=== PATIENT | female | born 1995 | race Caucasian/White ===

== ENCOUNTER 2023-10-06 20:07 | Outpatient (CLI) | payer OTHER, SELFPAY ==
[2023-10-06] VITALS (24 sets, daily range): BP systolic 122–134; BP diastolic 86–95; PULSE 92–120; O2SAT 97–100; BMI 35.6
[2023-10-06 20:47] LABS: Basophils Percent Auto 0.2 % (0.2-1.2); Eosinophils Absolute Auto 0.1 K/mm3 (0-0.3); Eosinophils Percent Auto 0.9 % (0-4.4); Hematocrit 35.1 % (37.0-47.0); Hemoglobin 11.9 g/dL (12.0-15.0); Immature Granulocyte Absolute 0.15 K/mm3 (0.00-0.031); Immature Granulocyte Percent A 1.3 % (0-0.5); Lymphocytes Absolute Auto 2.23 K/mm3 (0.9-3.2); Lymphocytes Percent Auto 19.4 % (18.3-44.2); Mean Corpuscular HGB Conc 33.9 g/dl (32-36); Mean Corpuscular Hemoglobin 27.7 pg (26-34); Mean Corpuscular Volume 81.8 fl (80-100); Mean Platelet Volume 12.9 fl (7.4-10.4); Monocytes Percent Auto 8.9 % (2.6-8.5); Neutrophils Percent Auto 69.3 % (45.5-73.1); Platelet Count Result 171 k/mm3 (150-375); Red Blood Count 4.29 M/mm3 (4.2-5.4); Red Cell Distribution Width 13.8 % (11.5-14.5); White Blood Count 11.5 K/mm3 (4.5-10.0)
[2023-10-06 20:56] LABS: Creatinine Urine 31.5 mg/dL; Total Protein Urine Random 13 mg/dL; Ur Ttl Prot Creatinine Ratio 0.41 mg/mg (0-0.20)
[2023-10-06 20:57] LABS: Alanine Aminotransferase 19 U/L (6-35); Albumin Level 3.3 g/dL (3.5-5.1); Alkaline Phosphatase 213 U/L (38-126); Anion Gap 7 mmol/L (4-12); Aspartate Amino Transferase 24 U/L (14-36); Bilirubin,Total 0.4 mg/dL (0.2-1.3); Blood Urea Nitrogen 5 mg/dL (7-17); Calcium 8.5 mg/dL (8.4-10.2); Carbon Dioxide 20 mmol/L (22-30); Chloride 107 mmol/L (98-107); Estimated CRCL calculation 120 ml/min; Estimated Glomerular Filt Rate > 60; Glucose 109 mg/dL (65-110); Potassium 3.8 mmol/L (3.4-5.0); Sodium 134 mmol/L (137-145); Uric Acid 4.3 mg/dL (2.5-7.5)
[2023-10-06 21:02] LABS: Bacteria Urine None Seen /hpf; Non Pathogenic Casts 0-2; RBC Urine 0-2 /hpf (0-2); Squamous Epithelial Cell Urine None Seen /hpf (Few); WBC Urine 0-5 /hpf (0-3)
[2023-10-06 21:12] LABS: Appearance Urine Clear (Clear); Bilirubin Urine Negative (Negative); Blood Urine Negative (Negative); Color Urine Yellow (Yellow); Glucose Urine UA Trace mg/dL (Negative); Ketones Urine Negative (Negative); Leukocyte Esterase Ur Trace LEU/UL (Negative); Nitrate Urine Negative (Negative); Protein Urine Negative (Negative); Specific Grav Ur 1.005 (1.001-1.035); Urobilinogen Urine 0.2 mg/dL (<2.0); pH Urine 6.5 (5.0-9.0)
[2023-10-06 21:13] LABS: Add Urine Microscopic? YES
--- NOTE | 2023-10-06 21:33 | PC.NURSE ---
Called Jeffery Mckenna CNM, update on pt, labs, tracing, and blood pressure. Orders received to admit as induction of labor with cytotec 50 mcg every four hours and administer 1000 mg Tylenol.
--- NOTE | 2023-10-06 21:39 | PC.NURSE ---
Jeffery Mckenna CNM discussing induction with pt on room phone.
--- NOTE | 2023-10-07 07:48 | PM.OBPNLAB ---
Pain Control Date/time seen: 10/07/23 07:48 Comments: starting to get very uncomfortable, planning epidural, AROM clear fluid FHR category 1 Pelvic Exam Dilation (cm): 2 Effacement (%): 80 station: -2 Amniotic membrane status: Ruptured Comments: AROM
== END 2023-10-06 21:43 | disposition other institution (70) ==
LOC: ANHOBOP 20:22 → ANHOBPP 10-07 04:46
PROVIDERS: Obstetrics & Gynecology; PCP Advanced Practice Midwife; Visit Provider Advanced Practice Midwife
DX: O13.9 Gestational [pregnancy-induced] hypertension without significant proteinuria, unspecified trimester (principal); Z3A.00 Weeks of gestation of pregnancy not specified
CPT/HCPCS: 36415; 59025; 80053; 81001; 82570; 84156; 84550; 85025; 99199

== ENCOUNTER 2023-10-06 21:43 | Inpatient (IN) | payer OTHER, SELFPAY ==
[2023-10-06] VITALS (24 sets, daily range): BP systolic 135–140; BP diastolic 92–101; PULSE 89–123; O2SAT 95–100; BMI 35.7
--- NOTE | 2023-10-06 22:33 | LDADM ---
This patient, Audrey Flanagan, was admitted to Labor/Delivery/Recovery 107 on 10/06/23 at 21:43. Plans for labor, pain management and were discussed with patient. Patient/family oriented to hospital policies and general routines including ID bracelet, bed and alarms, visiting hours, pain management, procedures, bathroom and other care routines, personal items, smoking policy, room service/diet and guest tray routines, infant security routines, and visiting hours. Patient/Family are encouraged to report perceived risks to care and to ask questions if they do not understand what they are told or what they should do. See OBIX for further documentation.
[2023-10-06 22:59] LABS: Basophils Percent Auto 0.2 % (0.2-1.2); Eosinophils Absolute Auto 0.1 K/mm3 (0-0.3); Hematocrit 36.3 % (37.0-47.0); Hemoglobin 12.2 g/dL (12.0-15.0); Immature Granulocyte Absolute 0.18 K/mm3 (0.00-0.031); Immature Granulocyte Percent A 1.5 % (0-0.5); Immature Platelet Fraction Pct 13.8 % (0.9-11.2); Lymphocytes Absolute Auto 2.36 K/mm3 (0.9-3.2); Lymphocytes Percent Auto 19.2 % (18.3-44.2); Mean Corpuscular HGB Conc 33.6 g/dl (32-36); Mean Corpuscular Hemoglobin 27.5 pg (26-34); Mean Corpuscular Volume 81.8 fl (80-100); Mean Platelet Volume 12.7 fl (7.4-10.4); Monocytes Absolute Auto 0.9 K/mm3 (0.1-0.6); Monocytes Percent Auto 7.1 % (2.6-8.5); Neutrophils Absolute Auto 8.7 K/mm3 (1.3-6.7); Platelet Count Result 176 k/mm3 (150-375); Red Blood Count 4.44 M/mm3 (4.2-5.4); Red Cell Distribution Width 13.7 % (11.5-14.5); White Blood Count 12.3 K/mm3 (4.5-10.0)
[2023-10-06] MEDS: miSOPROStol 25 MCG TABLET 50 MCG BUCCAL (23:01)
[2023-10-06 23:49] LABS: HIV 1/2 Ab P24 Ag Result Negative (Negative)
[2023-10-07] VITALS (285 sets, daily range): BP systolic 90–159; BP diastolic 57–111; PULSE 70–167; RESP 16–18; TEMP 36.2–37.3; O2SAT 89–100
[2023-10-07] MEDS: ACETAMINOPHEN 500 MG TABLET 1000 MG PO ×3 (00:35→17:21)
[2023-10-07] MEDS: FAMOTIDINE 20 MG/2 ML VIAL IV PUSH (00:36)
--- NOTE | 2023-10-07 02:24 | PM.IMHP ---
H&P: HPI History of Present Illness Date/Time: 10/07/23 02:24 Chief Complaint: at 37.3 weeks gestation presents with complaints of elevated blood pressure at home. complaints of mild headache, no visual changes, epigastric pain. pt does have complaints of pedal edema bilaterally, has been uncomplicated Review of Systems Review of Systems: All systems reviewed & are unremarkable except as noted in HPI and below PMFSH Family History Family History (Updated 10/02/23 @ 12:34 by Eneida Quintana RN) Mother Myocardial infarction Grandparent Breast cancer Social History Social History Smoking status: Never smoker Substance use: never Do You Feel Safe in your Home?: Yes Lack of Transportation: No Lack of Food: Never True Current Housing: I Have Housing Concerned About Future Housing: No Difficulty Paying Gas/Electric Bills: No Difficulty Paying for Meds: No Currently Unemployed: No Education: Bachelor's Degree Difficulty w/ Childcare or Family Care: No Spiritual care concerns: No Meds Home Medications and Allergies Home Medications Medication Instructions Recorded Confirmed Type diphenhydramine HCl 50 mg capsule 50 mg PO HS 10/02/23 10/02/23 History ([employer] SleepGels) prenat.vits,ham,[id number] 1 tablet 10/02/23 History Allergies Allergy/AdvReac Type Severity Reaction Status Date / Time No Known Allergies Allergy Verified 10/06/23 20:52 Vital Signs Vital Signs - 24 hr 10/06/23 22:13 10/06/23 22:18 10/06/23 22:23 Pulse Rate Blood Pressure Pulse Oximetry 100 99 100 Oxygen Delivery 10/06/23 22:28 10/06/23 22:33 10/06/23 22:38 Pulse Rate Blood Pressure Pulse Oximetry 100 99 100 Oxygen Delivery 10/06/23 22:43 10/06/23 22:48 10/06/23 22:53 Pulse Rate Blood Pressure Pulse Oximetry 95 99 99 Oxygen Delivery 10/06/23 22:56 10/06/23 23:02 10/06/23 23:03 Pulse Rate 96 Blood Pressure 140/101 H Pulse Oximetry 99 99 Oxygen Delivery 10/06/23 23:08 10/06/23 23:13 10/06/23 23:18 Pulse Rate Blood Pressure Pulse Oximetry 100 99 100 Oxygen Delivery 10/06/23 23:23 10/06/23 23:29 10/06/23 23:31 Pulse Rate 91 Blood Pressure 135/92 H Pulse Oximetry 100 100 Oxygen Delivery 10/06/23 23:34 10/06/23 23:39 10/06/23 23:44 Pulse Rate Blood Pressure Pulse Oximetry 99 99 98 Oxygen Delivery 10/06/23 23:49 10/06/23 23:54 10/06/23 23:59 Pulse Rate Blood Pressure Pulse Oximetry 99 98 98 Oxygen Delivery 10/07/23 00:01 10/07/23 00:04 10/07/23 00:09 Pulse Rate 98 Blood Pressure 130/76 Pulse Oximetry 97 98 Oxygen Delivery 10/07/23 00:14 10/07/23 00:19 10/07/23 00:24 Pulse Rate Blood Pressure Pulse Oximetry 98 98 98 Oxygen Delivery 10/07/23 00:29 10/07/23 00:31 10/07/23 00:34 Pulse Rate 92 Blood Pressure 127/75 Pulse Oximetry 98 98 Oxygen Delivery 10/07/23 00:39 10/07/23 00:54 10/07/23 00:54 Pulse Rate Blood Pressure Pulse Oximetry 98 100 99 Oxygen Delivery 10/07/23 00:59 10/07/23 01:04 10/07/23 01:09 Pulse Rate Blood Pressure Pulse Oximetry 100 99 99 Oxygen Delivery 10/07/23 01:14 10/07/23 01:19 10/07/23 01:24 Pulse Rate Blood Pressure Pulse Oximetry 100 99 99 Oxygen Delivery 10/07/23 01:29 10/07/23 01:31 10/07/23 01:34 Pulse Rate 82 Blood Pressure 118/69 Pulse Oximetry 98 97 Oxygen Delivery 10/07/23 01:39 10/07/23 01:44 10/07/23 01:49 Pulse Rate Blood Pressure Pulse Oximetry 98 98 98 Oxygen Delivery 10/07/23 01:54 10/07/23 01:59 10/07/23 02:01 Pulse Rate 86 Blood Pressure 137/79 Pulse Oximetry 98 98 Oxygen Delivery 10/07/23 02:04 10/07/23 02:09 10/07/23 02:14 Pulse Rate Blood Pressure Pulse Oximetry 97 97 100 Oxygen Delivery 10/07/23 02:19 10/06/23 22:33 Pulse Rate Blood Pressure
[2023-10-07] MEDS: miSOPROStol 25 MCG TABLET 50 MCG BUCCAL (03:01)
[2023-10-07] MEDS: ONDANSETRON INJ 4 MG/2 ML VIAL IV PUSH ×2 (06:11→14:07)
[2023-10-07] MEDS: LACTATED RINGERS 500 ML 999 ML IV CONT (07:40)
[2023-10-07] MEDS: LACTATED RINGERS 1,000 ML 125 ML IV CONT ×3 (08:00→14:02)
--- NOTE | 2023-10-07 08:28 | WPDANESEPP ---
Anes - Eval Pre Procedure Procedure: Labor epidural Date/Time: 10/07/23 08:28 Surgeon: Elias Preop Diagnosis: Pain during labor Pre Op Diagnosis: IOL Patient Data Age: 28 Gender: F Height: 1.65 m Weight: 97.5 kg Last Vital Signs Temp 36.2 C L 10/07/23 08:00 Pulse 86 10/07/23 08:01 Resp 18 10/07/23 07:13 BP 137/100 H 10/07/23 08:01 Pulse Ox 99 10/07/23 08:25 O2 Del Method Room Air 10/06/23 22:33 Allergies Allergy/AdvReac Type Severity Reaction Status Date / Time No Known Allergies Allergy Verified 10/06/23 20:52 Home Medications Medication Instructions Recorded Confirmed Type diphenhydramine HCl 50 mg capsule 50 mg PO HS 10/02/23 10/02/23 History ([employer] SleepGels) prenat.vits,ham,kvv-ixfv-iobyt 1 tablet DAILY 10/02/23 10/07/23 History Laboratory Tests 10/06/23 10/07/23 22:31 05:30 WBC 12.3 H K/mm3 (4.5-10.0) RBC 4.44 M/mm3 (4.2-5.4) Hgb 12.2 g/dL (12.0-15.0) Hct 36.3 L % (37.0-47.0) MCV 81.8 fl (80-100) MCH 27.5 pg (26-34) MCHC 33.6 g/dl (32-36) RDW 13.7 % (11.5-14.5) Plt Count 176 k/mm3 (150-375) MPV 12.7 H fl (7.4-10.4) Immature Gran % (Auto) 1.5 H % (0-0.5) Neut % (Auto) 71.0 % (45.5-73.1) Lymph % (Auto) 19.2 % (18.3-44.2) Haakon % (Auto) 7.1 % (2.6-8.5) Eos % (Auto) 1.0 % (0-4.4) Baso % (Auto) 0.2 % (0.2-1.2) Lymph # (Auto) 2.36 K/mm3 (0.9-3.2) Haakon # (Auto) 0.9 H K/mm3 (0.1-0.6) Eos # (Auto) 0.1 K/mm3 (0-0.3) Baso # (Auto) 0.0 K/mm3 (0.0-0.1) Abs Immat Gran (auto) 0.18 H K/mm3 (0.00-0.031) Absolute Neuts (auto) 8.7 H K/mm3 (1.3-6.7) Absolute Nucleated RBC 0.000 K/mm3 (0.0-0.012) Nucleated RBC % 0.0 % (0.0-0.2) % Immature Plt Fraction 13.8 H % (0.9-11.2) Membranes Rupture Intact Membranes Rup Com Yes RPR Pending HIV 1&2 Ab/P24 Ag 4thGn Negative (Negative) Blood Type O Positive Antibody Screen Negative Patient hx anesthesia problems: none Family hx anesthesia problems: none Results Review: All pre-operative results and documents have been reviewed as part of the pre-operative evaluation. [facility] Family History Family History Mother Myocardial infarction Grandparent Breast cancer Social History Social History Smoking status: Never smoker Substance use: never Do You Feel Safe in your Home?: Yes Lack of Transportation: No Lack of Food: Never True Current Housing: I Have Housing Concerned About Future Housing: No Difficulty Paying Gas/Electric Bills: No Difficulty Paying for Meds: No Currently Unemployed: No Education: Bachelor's Degree Difficulty w/ Childcare or Family Care: No Spiritual care concerns: No Exam Day of Procedure 10/07/23 08:28 Patient weight: obese Heart: regular rate and rhythm Lungs: clear to auscultation Airway: Mallampati scale Neurological: alert and oriented
[2023-10-07] MEDS: fentaNYL CITRATE INJ (*CRX) 100 MCG/2 ML VIAL 50 MCG IV PUSH ×2 (08:34→09:03)
[2023-10-07 13:14] LABS: Rapid Plasma Reagin Non-Reactive (NonReactive)
[2023-10-07] MEDS: OXYTOCIN 30 UNITS/NS 500 ML 30 UNITS/500 ML BAG IV CONT (15:15)
[2023-10-07] MEDS: diphenhydrAMINE HCl INJ 50 MG/ML VIAL 25 MG IV PUSH (17:43)
[2023-10-07] MEDS: OXYTOCIN 30 UNITS/NS 500 ML 30 UNITS/500 ML BAG 999 UNITS IV CONT (19:58)
[2023-10-07] MEDS: LIDOCAINE HCL 1% LOCAL INJ 20 ML VIAL (20:09)
--- NOTE | 2023-10-07 20:19 | P.PCNOB_ITS ---
OB - Vaginal Delivery Note Procedure Delivery date: 10/07/23 Events: Preeclampsia w/o severe features Intrapartal Events: Placental Abruption (will send placenta to pathology, blood clot on placenta after delivered) Induction method: AROM, Per Misoprostol Protocol and Per Pitocin Protocol Delivery monitor: External FHT and Internal Uterine Route of delivery: Episiotomy description: None Laceration Description: Labial (left) Delivery repair: vicryl Specimen: Yes Quantitative Blood Loss (ml): 350 Anesthesia type: Epidural Disposition: Floor Complications: No immediate complications [place] Baby Date of : 10/07/23 Time of : 19:57 Weeks of gestation at delivery: 37 Infant gender: Male Weight (pounds): 6 Weight (ounces): 13 presentation: vertex position: Left Occiput Anterior Placenta delivery description: Spontaneous Cord Vessel Description: 3 Vessels and Clamped/Cut score one minute: 8 score five minutes: 9 Narrative: baby to warmer for evaluation, mother and baby in stable position
[2023-10-07] MEDS: OXYTOCIN 30 UNITS/NS 500 ML 30 UNITS/500 ML BAG 125 UNITS IV CONT (20:30)
[2023-10-07] MEDS: ACETAMINOPHEN 325 MG TABLET 650 MG PO (21:23)
[2023-10-07] MEDS: IBUPROFEN 600 MG TABLET PO (21:24)
[2023-10-07] MEDS: HYDROcodone/acetaminophen (*CRX) 5-325 MG TABLET 1 TAB (23:40)
[2023-10-08 02:20] VITALS: BP 134/82; PULSE 76; RESP 16; TEMP 37.3; O2SAT 100
[2023-10-08] MEDS: IBUPROFEN 600 MG TABLET PO ×3 (03:17→16:54)
[2023-10-08] MEDS: ACETAMINOPHEN 325 MG TABLET 650 MG PO ×3 (03:17→16:54)
--- NOTE | 2023-10-08 04:58 | PC.NURSE ---
2330-Pt c/o pain at epidural site not relieved with tyelnol/motrin, this RN spoke with Bala ALEJO, order given for Norco5/325mg po q4 prn. This nurse also applied Kpad to back
[2023-10-08 05:02] LABS: Hematocrit 33.2 % (37.0-47.0); Hemoglobin 10.5 g/dL (12.0-15.0)
[2023-10-08 07:10] VITALS: BP 121/87; PULSE 95; RESP 16; TEMP 36.5; O2SAT 96
[2023-10-08 08:00] VITALS: PULSE 115; RESP 16; O2SAT 97
--- NOTE | 2023-10-08 09:08 | PM.OBPNVD ---
OB - PN: Subj Subjective Date/time seen: 10/08/23 09:08 Patient comments: no complaints, pain well controlled, incisional pain, tolerating diet and flatus present OB - PN: Obj Data Labs 10/08/23 04:42 Labs: Laboratory Results - last 24 hr 10/06/23 10/08/23 22:31 04:42 Hgb 10.5 L Hct 33.2 L RPR Non-reactive OB - PN A/P Assessment and Plan (1) Preeclampsia: Qualifiers: Trimester: third trimester Qualified Code(s): O14.93 - Unspecified pre-eclampsia, third trimester Code(s): O14.90 - Unspecified pre-eclampsia, unspecified trimester Status: Acute Assessment and Plan: preeclampsia resolving Plan day: 1 Plan: routine care Comments: No problems, routine care Time Spent With Patient Time: Total time spent is greater than 50% in coordination of care (as documented) at patient's floor/unit and/or counseling patient: Exam Const: General: comfortable, no acute distress and alert Resp: Effort & Inspection: normal respiratory effort Auscultation: no crackles, no rales and no rhonchi Cardio: Rate: regular rate Heart sounds: no click, no murmurs and no rubs GI: Inspection: non-distended GI Palp: No Tenderness to palpation present (GI) Auscultation: normal bowel sounds Other: Incision - CDI Extrem: General: normal to inspection, no pedal edema and no calf tenderness
[2023-10-08] MEDS: MULTIVIT/MIN/PREN/FOL AC/IRON TABLET 1 TAB PO (09:36)
[2023-10-08] MEDS: HYDROcodone/acetaminophen (*CRX) 5-325 MG TABLET 1 TAB PO ×2 (09:36→14:18)
[2023-10-08] MEDS: DOCUSATE SODIUM 100 MG CAPSULE PO (09:36)
--- NOTE | 2023-10-08 10:49 | WPDANLDPN2 ---
Anes-Prog Note L&D Date/Time: 10/08/23 10:49 Comfortable throughout: labor and delivery Neuraxial method: epidural Epidural/Spinal procedure site: clean & non-tender Neuro status: Neuro function grossly intact. Cardiovascular status: normal Respiratory status: normal Airway patency: baseline Mental status: baseline Post-Op hydration status: normal Vital Signs: Last Vital Signs Temp 36.5 C 10/08/23 07:10 Pulse 95 10/08/23 07:10 Resp 16 10/08/23 07:10 BP 121/87 10/08/23 07:10 Pulse Ox 96 10/08/23 07:10 O2 Del Method Room Air 10/06/23 22:33 Pain score (VAS): 04/01 I/O: Intake & Output 10/07/23 10/08/23 10/08/23 23:59 07:59 15:59 Intake Total 800 Output Total 125 Balance -125 800 Post-procedural complaints: none Patient feedback: Patient satisfied with anesthetic care.
[2023-10-08 12:06] VITALS: BP 128/85; PULSE 115; RESP 16; TEMP 36.9; O2SAT 97
[2023-10-08 20:00] VITALS: BP 139/99; PULSE 106; RESP 18; TEMP 36.4; O2SAT 100
[2023-10-09] MEDS: ACETAMINOPHEN 325 MG TABLET 650 MG PO ×2 (00:12→08:30)
[2023-10-09] MEDS: IBUPROFEN 600 MG TABLET PO ×2 (00:12→13:38)
[2023-10-09] MEDS: DOCUSATE SODIUM 100 MG CAPSULE PO ×2 (00:13→08:27)
[2023-10-09 00:15] VITALS: BP 135/92; PULSE 98
[2023-10-09 05:50] VITALS: BP 135/97; PULSE 91
--- NOTE | 2023-10-09 06:58 | PM.OBPNVD ---
OB - PN: Subj Subjective Date/time seen: 10/09/23 06:58 Interval history: pp day 2 desires d/c low back pain, epidural attempts x 6 OB - PN: Obj Data Labs 10/08/23 04:42 OB - PN A/P Plan day: 2 Plan: routine care and discharge home Time Spent With Patient Time: Total time spent is greater than 50% in coordination of care (as documented) at patient's floor/unit and/or counseling patient: Review of Systems Review of Systems: All systems reviewed & are unremarkable except as noted in HPI and below Exam Const: General: cooperative and healthy appearing Chest: Chest palpation & inspection: normal inspection of the chest Resp: Effort & Inspection: normal respiratory effort Cardio: Rate: regular rate Rhythm: regular rhythm Back/Spine/Pelvis: Back: no CVA tenderness Skin: General skin exam: normal color
--- NOTE | 2023-10-09 07:01 | PM.OBDSVD ---
DS: Admitting Diagnosis Discharge Date 10/09/23 Admitting Diagnosis IOL, preeclampsia DS: Discharge Diagnosis Discharge Diagnosis (1) Vaginal delivery: Code(s): O80 - Encounter for full-term uncomplicated delivery Status: Acute (2) Back pain: Code(s): M54.9 - Dorsalgia, unspecified Status: Acute OB - DS: Summary OB Procedures : None OB Procedures Intrapartum: Spontaneous Vag Delivery OB Procedures: : None Peripartum Data Laceration Description: Labial (left) Episiotomy description: None Time Spent with Patient Time attestation: Total time spent providing and/or coordinating discharge services: DS: Data Data Completed and Pending Pending studies at discharge: Pending at discharge 10/07/23 20:21 Surgical [PTH] Routine Discharge Plan Discharge Attending physician on discharge: Alex Griffin Consulting providers: Jillian Mckenna Discharging Clinician: Jillian Mckenna Patient Disposition: Home, Self-Care Activity: pelvic rest Diet: regular Patient Instructions: Antibiotic Form Stand Alone Forms: General Discharge Information Follow-up/Referrals: Jillian Mckenna CNM [Primary Care Provider] - 1 Week (bp check) Discharge Medications: New hydrocodone-acetaminophen 5-325 mg Tablet 1 tablet PO Q4H PRN (Reason: Pain Rated 4-6) Qty: 10 0RF ibuprofen 600 mg Tablet 600 mg PO Q6H PRN (Reason: Cramping) Qty: 30 0RF Continued diphenhydramine HCl [[employer]om SleepGels] 50 mg Capsule 50 mg PO HS #2 Tablet 1 tablet DAILY Date of admission: 10/06/23 21:43 Primary Care Provider: Jillian Mckenna Admitting Provider: Alex Griffin Attending physician on admission: Alex Griffin Condition: Stable
[2023-10-09 08:25] VITALS: BP 132/95; PULSE 95; RESP 16; TEMP 37.2; O2SAT 98
[2023-10-09] MEDS: MULTIVIT/MIN/PREN/FOL AC/IRON TABLET 1 TAB PO (08:27)
[2023-10-09 09:19] LABS: Basophils Absolute Auto 0.1 K/mm3 (0.0-0.1); Basophils Percent Auto 0.3 % (0.2-1.2); Eosinophils Absolute Auto 0.1 K/mm3 (0-0.3); Eosinophils Percent Auto 0.6 % (0-4.4); Hematocrit 34.2 % (37.0-47.0); Hemoglobin 11.3 g/dL (12.0-15.0); Immature Granulocyte Absolute 0.34 K/mm3 (0.00-0.031); Lymphocytes Absolute Auto 2.29 K/mm3 (0.9-3.2); Lymphocytes Percent Auto 13.5 % (18.3-44.2); Mean Corpuscular Volume 84.7 fl (80-100); Mean Platelet Volume 12.4 fl (7.4-10.4); Monocytes Absolute Auto 0.8 K/mm3 (0.1-0.6); Monocytes Percent Auto 4.4 % (2.6-8.5); Neutrophils Absolute Auto 13.5 K/mm3 (1.3-6.7); Neutrophils Percent Auto 79.2 % (45.5-73.1); Platelet Count Result 189 k/mm3 (150-375); Red Blood Count 4.04 M/mm3 (4.2-5.4); Red Cell Distribution Width 14.1 % (11.5-14.5)
[2023-10-09 09:31] LABS: Alanine Aminotransferase 23 U/L (6-35); Albumin Level 3.3 g/dL (3.5-5.1); Alkaline Phosphatase 171 U/L (38-126); Anion Gap 6 mmol/L (4-12); Aspartate Amino Transferase 37 U/L (14-36); Bilirubin,Total 0.3 mg/dL (0.2-1.3); Blood Urea Nitrogen 7 mg/dL (7-17); Calcium 8.9 mg/dL (8.4-10.2); Carbon Dioxide 23 mmol/L (22-30); Chloride 104 mmol/L (98-107); Estimated CRCL calculation 120 ml/min; Estimated Glomerular Filt Rate > 60; Glucose 94 mg/dL (65-110); Potassium 4.2 mmol/L (3.4-5.0); Sodium 133 mmol/L (137-145)
--- NOTE | 2023-10-09 09:50 | PC.NURSE ---
Consulted with mother concerning needs and she shared her ability to independently latch infant. Mother has not attempted to put baby to breast this morning, she has pumped and bottle fed. Encouraged attempting at each feeding time if it is her intention to latch baby. She states he is sleepy often, especially today after the circumcision. Mother is feeding appropriately for growth of with pumped breastmilk and formula as needed. She understands waking and stimulating him to eat if necessary. Encouraged her to call for a latch check before discharge. Infant has had appropriate feedings in the last 24 hours meets the outcomes for weight, output, blood sugar and jaundice at this time. Reinforced understanding of milk production, transition of milk, signs of adequate intake, transition of stool, prevention/relief of engorgement, the different methods of stimulating infant to breastfeed 1-3 hours after the start of the last feeding, community resources, and when to call a provider using the resource of the feeding sheet along with the mom and baby guide. Mother voiced understanding of the information shared, is confident to continue effectively her infant at home, when to call for assistance, denies any additional assistance or education at this time. Reported to the Primary RN.
[2023-10-09 12:12] VITALS: BP 134/90; PULSE 95; RESP 16; TEMP 36.6; O2SAT 99
--- NOTE | 2023-10-09 14:10 | PC.NURSE ---
Patient complaining of headache, rating it a 7, but appears to be a lot of pain. Anesthesia notified and agreed to come assess patient.
--- NOTE | 2023-10-09 14:21 | PC.NURSE ---
Anesthesia came to visit patient, discussed a blood patch and patient declined at this time. Anesthesia notified this RN that she explained s/sx to look out for and informed her to notify RN if headache worsens.
[2023-10-10 08:47] VITALS: BP 139/92; PULSE 113; RESP 18; TEMP 36.5; O2SAT 100
== END 2023-10-09 16:20 | disposition home or self-care (01) | DRG 807 ==
LOC: ANHLDR 21:48 → ANHOB2 10-08 00:16
PROVIDERS: Admitting Provider Obstetrics & Gynecology; PCP Advanced Practice Midwife; Visit Provider Obstetrics & Gynecology
DX: O14.04 Mild to moderate pre-eclampsia, complicating childbirth (principal); Z37.0 Single live birth; O45.93 Premature separation of placenta, unspecified, third trimester; O70.0 First degree perineal laceration during delivery; Z3A.37 37 weeks gestation of pregnancy
CPT/HCPCS: 36415; 59025; 80053; 81001; 82570; 84112; 84156; 84550; 85014; 85018; 85025; 85055; 86592; 86703; 86850; 86900; 86901; 88307; 99199; A9270; G0432; J1200; J2405; J2590; J2795; J3010; J7120

== ENCOUNTER 2024-04-23 11:31 | Outpatient (CLI) | payer OTHER, SELFPAY ==
--- OUTSIDE RECORDS SUMMARY | 2024-04-23 11:35 | XMS_ITS | Data Portability ---
Author Organization [facility] [place] Address [address] [place] [place] [place] [address] Assessment Encounter Date Assessment Date Assessment LastModified by Organization Details LastModified Time 09/25/2023 09/25/2023 Patient is _35__weeks . Discussed plan. Not available 09/25/2023 10:15:53 10/02/2023 10/02/2023 Patient is __36_weeks . Discussed plan. [email or web address] Not available 10/02/2023 16:03:21 Plan of Treatment Reminders Order Date Submit Date Provider Last Modified By Organization Details Last Modified Time Details Appointments [facility]- EST 025 03:15PM Jillian Mckenna CNM Not available Not available Not available Lab None record ed. Referral None record ed. Procedures None record ed. Surgeries None record ed. Imaging US, obstet conrad, follow -up 024 09/11/19 24 [email or web address] [place], [address], [place], [address], 09/12/2023 09:17:12 Medication Orders None record ed. Patient TargetsNo targets recorded. Patient InstructionsNo instructions recorded. Reason for Referral None Reported. Results Created Date Observation Date Name Description Value Unit Range Abnormal Flag Note LastModifiedBy Organization Detail LastModifiedTime 09/10/19 24 09/10/2023 CBC W/DIF F WBC 12.4 10'3/ uL 3.5-10 .5 high Not Available [facility] (Lab) [address], [place], [address], 09/11/2023 10:50:16 09/10/19 24 09/10/2023 CBC W/DIF F RBC 4.51 10'6/ uL (based on docume nted legal sex) 3.80-5 .20 Not Available [facility] (Lab) [address] [facility], [place], [address], 09/11/2023 10:50:16 09/10/19 24 09/10/2023 CBC W/DIF F HGB 12.6 g/dL (based on docume nted legal sex) 11.6-1 5.4 Not Available [facility] (Lab) [address] [facility], [place], [address], 09/11/2023 10:50:16 09/10/19 24 09/10/2023 CBC W/DIF F HCT 39.1 % (based on docume nted legal sex) 34.0-4 5.0 Not Available [facility] (Lab) [address] [facility], [place], [address], 09/11/2023 10:50:16 09/10/19 24 09/10/2023 CBC W/DIF F MCV 86.7 fL 80.0-9 9.0 Not Available [facility] (Lab) [address] [facility], [place], [address], 09/11/2023 10:50:16 09/10/19 24 09/10/2023 CBC W/DIF F MCH 27.9 pg 27.0-3 4.0 Not Available [facility] (Lab) [address] [facility], [place], [address], 09/11/2023 10:50:16 09/10/19 24 09/10/2023 CBC W/DIF F MCHC 32.2 g/dL 32.0-3 5.5 Not Available [facility] (Lab) [address] [place], [address], 09/11/2023 10:50:16 09/10/19 24 09/10/2023 CBC W/DIF F RDW 14.0 % 11.0-1 5.0 Not Available [facility] (Lab) [address] [facility], [place], [address], 09/11/2023 10:50:16 09/10/19 24 09/10/2023 CBC W/DIF F plt 185 10'3/ uL 150-40 0 Not Available [facility] (Lab) [address] [facility], [place], [address], 09/11/2023 10:50:16 09/10/19 24 09/10/2023 CBC W/DIF F MPV 13.0 fL 8.8-12 .1 high Not Available [facility] (Lab) [address] [facility], [place], [address], 09/11/2023 10:50:16 09/10/19 24 09/10/2023 CBC W/DIF F NRBC's 0.0 % 0.0 Not Available [facility] (Lab) [address] [facility], [place], [address], 09/11/2023 10:50:16 09/10/19 24 09/10/2023 CBC W/DIF F absolute NRBCs 0.0 10'3/ uL no refere nce range establ ished Not Available [facility] (Lab) [address] [facility], [place], [address], 09/11/2023 10:50:16 09/10/19 24 09/10/2023 CBC W/DIF F neutrophils 77.6 % 34.0-7 3.0 high Not Available [facility] (Lab) [address] [facility], [place], [address], 09/11/2023 10:50:16 09/10/19 24 09/10/2023 CBC W/DIF F lymphocytes 14.0 % 15.0-5 0.0 low Not Available [facility] (Lab) [address] [facility], [place], [address], 09/11/2023 10:50:16 09/10/19 24 09/10/2023 CBC W/DIF F monocytes 6.1 % 1.0-15 .0 Not Available [facility] (Lab) [address] [place], [address], 09/11/2023 10:50:16 09/10/19 24 09/10/2023 CBC W/DIF F eosinophils 0.6 % 0.0-8. 0 Not Available [facility] (Lab) [address] [facility], [place], [address], 09/11/2023 10:50:16 09/10/19 24 09/10/2023 CBC W/DIF F basophils 0.2 % 0.0-2. 0 Not Available [facility] (Lab) [address] [facility], [place], [address], 09/11/2023 10:50:16 09/10/19 24 09/10/2023 CBC W/DIF F immature granulocytes 1.5 % no define d refere nce range Not Available [facility] (Lab) [address] [facility], [place], [address], 09/11/2023 10:50:16 09/10/19 24 09/10/2023 CBC W/DIF F absolute neutrophils 9.6 10'3/ uL 1.5-8. 0 high Not Available [facility] (Lab) [address] [place], [address], 09/11/2023 10:50:16 09/10/19 24 09/10/2023 CBC W/DIF F absolute lymphocytes 1.7 10'3/ uL 1.0-4. 0 Not Available [facility] (Lab) [address] [place], [address], 09/11/2023 10:50:16 09/10/19 24 09/10/2023 CBC W/DIF F absolute monocytes 0.8 10'3/ uL 0.2-1. 0 Not Available [facility] (Lab) [address] [place], [address], 09/11/2023 10:50:16 09/10/19 24 09/10/2023 CBC W/DIF F absolute eosinophils 0.1 10'3/ uL 0.0-0. 6 Not Available [facility] (Lab) [address] [facility], [place], [address], 09/11/2023 10:50:16 09/10/19 24 09/10/2023 CBC W/DIF F absolute basophils 0.0 10'3/ uL 0.0-0. 3 Not Available [facility] (Lab) [address] [facility], [place], [address], 09/11/2023 10:50:16 09/10/19 24 09/10/2023 CBC W/DIF F absolute immature granulocytes 0.2 10'3/ uL 0.00-0 .10 high 2023 6:50 AM: P indic ates parti al resul ts on a panel have been relea sed. Addit ional resul ts will follo w. 2023 6:51 AM: This resul t has been final verif ied. No addit ional or feliciano ed resul ts are expec ernie. Not Available [facility] (Lab) [address] [facility], [place], [address], 09/11/2023 10:50:16 09/10/19 24 09/10/2023 URIC ACID uric acid 3.5 mg/dL 2.3-6. 6 Not Available [facility] (Lab) [address] [facility], [place], [address], 09/11/2023 10:50:17 09/10/19 24 09/10/2023 CMP(C OMPRE HENSI VE METAB OLIC PANEL ) sodium 136 mmol/ L 133-14 6 Not Available [facility] (Lab) [address] [facility], [place], [address], 09/11/2023 10:50:18 09/10/19 24 09/10/2023 CMP(C OMPRE HENSI VE METAB OLIC PANEL ) potassium 3.9 mmol/ L 3.5-5. 1 Not Available [facility] (Lab) [address] [facility], [place], [address], 09/11/2023 10:50:18 09/10/19 24 09/10/2023 CMP(C OMPRE HENSI VE METAB OLIC PANEL ) chloride 106 mmol/ L 98-107 Not Available [facility] (Lab) [address] [facility], [place], [address], 09/11/2023 10:50:18 09/10/19 24 09/10/2023 CMP(C OMPRE HENSI VE METAB OLIC PANEL ) carbon dioxide 23 mmol/ L 21-31 Not Available [facility] (Lab) [address] [facility], [place], [address], 09/11/2023 10:50:18 09/10/19 24 09/10/2023 CMP(C OMPRE HENSI VE METAB OLIC PANEL ) anion gap 7 mmol/ L 4-13 Not Available [facility] (Lab) [address] [facility], [place], [address], 09/11/2023 10:50:18 09/10/19 24 09/10/2023 CMP(C OMPRE HENSI VE METAB OLIC PANEL ) blood urea nitrogen 6 mg/dL 7-25 low Not Available [facility] (Lab) [address] [facility], [place], [address], 09/11/2023 10:50:18 09/10/19 24 09/10/2023 CMP(C OMPRE HENSI VE METAB OLIC PANEL ) creatinine 0.64 mg/dL 0.60-1 .30 Not Available [facility] (Lab) [address] [facility], [place], [address], 09/11/2023 10:50:18 09/10/19 24 09/10/2023 CMP(C OMPRE HENSI VE METAB OLIC PANEL ) egfrcr (CKD-epi 2020) >90 mL/mi n/1.7 3_m2 >=60 Not Available [facility] (Lab) [address] [facility], [place], [address], 09/11/2023 10:50:18 09/10/19 24 09/10/2023 CMP(C OMPRE HENSI VE METAB OLIC PANEL ) calcium 8.4 mg/dL 8.3-10 .5 Not Available [facility] (Lab) [address] [facility], [place], [address], 09/11/2023 10:50:18 09/10/19 24 09/10/2023 CMP(C OMPRE HENSI VE METAB OLIC PANEL ) glucose 87 mg/dL 70-100 Not Available [facility] (Lab) [address] [facility], [place], [address], 09/11/2023 10:50:18 09/10/19 24 09/10/2023 CMP(C OMPRE HENSI VE METAB OLIC PANEL ) protein, total 5.7 g/dL 6.4-8. 3 low Not Available [facility] (Lab) [address] [facility], [place], [address], 09/11/2023 10:50:18 09/10/19 24 09/10/2023 CMP(C OMPRE HENSI VE METAB OLIC PANEL ) albumin 3.1 g/dL 3.5-5. 0 low Not Available [facility] (Lab) [address] [place], [address], 09/11/2023 10:50:18 09/10/19 24 09/10/2023 CMP(C OMPRE HENSI VE METAB OLIC PANEL ) ALT 16 units /L 9-43 Not Available [facility] (Lab) [address] [place], [address], 09/11/2023 10:50:18 09/10/19 24 09/10/2023 CMP(C OMPRE HENSI VE METAB OLIC PANEL ) alkaline phosphatase 174 units /L 34-104 high Not Available [facility] (Lab) [address] [facility], [place], [address], 09/11/2023 10:50:18 09/10/19 24 09/10/2023 CMP(C OMPRE HENSI VE METAB OLIC PANEL ) AST 18 units /L 13-39 Not Available [facility] (Lab) [address] [facility], [place], [address], 09/11/2023 10:50:18 09/10/19 24 09/10/2023 CMP(C OMPRE HENSI VE METAB OLIC PANEL ) bilirubin, total 0.3 mg/dL 0.2-1. 2 Not Available [facility] (Lab) [address] [facility], [place], [address], 09/11/2023 10:50:18 09/10/19 24 09/10/2023 urina lysis , dipst ick Leukocytes +2 Not Available [facility] [address], [place], [address], 09/10/2023 12:33:36 09/10/19 24 09/10/2023 urina lysis , dipst ick Protein Trace Not Available [place] [address], [place], [address], 09/10/2023 12:33:36 09/10/19 24 09/10/2023 urina lysis , dipst ick Glucose Neg Not Available [place] [address], [place], [address], 09/10/2023 12:33:36 09/25/19 24 09/25/2023 CULTU RE: GROUP B STREP SCREE N, REFLE X SUSCE PTIBI LITY result report SEE RESULT S BELOW Test: Cultu re: Group B Strep , Refle x Susce ptibi lity ([facility]/ [facility]/K H/[facility] ) Speci men Sourc e: Vagin a/Rec andrzej Speci men Type: Vagin al/Re ctal Speci men Date: 7/5/2 024 1120 Resul t Date: 024 1411 Resul t Statu s: Final resul t Abnor mal: No Resul ting Lab: [facility] [address] [facility] [address] Tel: CULTU RE ----- ----- ----- --- No Group B strep isola ernie at 2 days (estefania ctive broth enhan cemen t) Not Available [facility] (Lab) [address] [facility], [place], [address], 09/28/2023 15:15:13 10/02/19 24 10/02/2023 CULTU RE: URINE result report SEE RESULT S BELOW Test: Cultu re: Urine Speci men Sourc e: Urine - Clean Catch Speci men Type: Urine Speci men Date: 2023 1534 Resul t Date: 2023 0046 Resul t Statu s: Final resul t Abnor mal: No Resul ting Lab: [facility] [address] [facility] [address] Tel: CULTU RE ----- ----- ----- --- No growt h in 1 day (dete ction level of 10,00 0 colon ies / ml.) Not Available [facility] (Lab) [address] [facility], [place], [address], 10/04/2023 01:49:13 10/16/19 24 10/16/2023 CBC W/DIF F WBC 13.1 10'3/ uL 3.5-10 .5 high Not Available [facility] (Lab) [address] [facility], [place], [address], 10/17/2023 05:39:48 10/16/19 24 10/16/2023 CBC W/DIF F RBC 4.57 10'6/ uL (based on docume nted legal sex) 3.80-5 .20 Not Available [facility] (Lab) [address] [facility], [place], [address], 10/17/2023 05:39:48 10/16/19 24 10/16/2023 CBC W/DIF F HGB 12.4 g/dL (based on docume nted legal sex) 11.6-1 5.4 Not Available [facility] (Lab) [address], [place], [address], 10/17/2023 05:39:48 10/16/19 24 10/16/2023 CBC W/DIF F HCT 38.6 % (based on docume nted legal sex) 34.0-4 5.0 Not Available [facility] (Lab) [address], [place], [address], 10/17/2023 05:39:48 10/16/19 24 10/16/2023 CBC W/DIF F MCV 84.5 fL 80.0-9 9.0 Not Available [facility] (Lab) [address], [place], [address], 10/17/2023 05:39:48 10/16/19 24 10/16/2023 CBC W/DIF F MCH 27.1 pg 27.0-3 4.0 Not Available [facility] (Lab) [address], [place], [address], 10/17/2023 05:39:48 10/16/19 24 10/16/2023 CBC W/DIF F MCHC 32.1 g/dL 32.0-3 5.5 Not Available [facility] (Lab) [address], [place], [address], 10/17/2023 05:39:48 10/16/19 24 10/16/2023 CBC W/DIF F RDW 14.1 % 11.0-1 5.0 Not Available [facility] (Lab) [address], [place], [address], 10/17/2023 05:39:48 10/16/19 24 10/16/2023 CBC W/DIF F plt 435 10'3/ uL 150-40 0 high Not Available [facility] (Lab) [address] [facility], [place], [address], 10/17/2023 05:39:48 10/16/19 24 10/16/2023 CBC W/DIF F MPV 12.0 fL 8.8-12 .1 Not Available [facility] (Lab) [address] [facility], [place], [address], 10/17/2023 05:39:48 10/16/19 24 10/16/2023 CBC W/DIF F NRBC's 0.0 % 0.0 Not Available [facility] (Lab) [address] [facility], [place], [address], 10/17/2023 05:39:48 10/16/19 24 10/16/2023 CBC W/DIF F absolute NRBCs 0.0 10'3/ uL no refere nce range establ ished Not Available [facility] (Lab) [address] [facility], [place], [address], 10/17/2023 05:39:48 10/16/19 24 10/16/2023 CBC W/DIF F neutrophils 73.0 % 34.0-7 3.0 Not Available [facility] (Lab) [address] [facility], [place], [address], 10/17/2023 05:39:48 10/16/19 24 10/16/2023 CBC W/DIF F lymphocytes 19.2 % 15.0-5 0.0 Not Available [facility] (Lab) [address] [facility], [place], [address], 10/17/2023 05:39:48 10/16/19 24 10/16/2023 CBC W/DIF F monocytes 5.4 % 1.0-15 .0 Not Available [facility] (Lab) [address] [facility], [place], [address], 10/17/2023 05:39:48 10/16/19 24 10/16/2023 CBC W/DIF F eosinophils 1.1 % 0.0-8. 0 Not Available [facility] (Lab) [address] [facility], [place], [address], 10/17/2023 05:39:48 10/16/19 24 10/16/2023 CBC W/DIF F basophils 0.5 % 0.0-2. 0 Not Available [facility] (Lab) [address] [facility], [place], [address], 10/17/2023 05:39:48 10/16/19 24 10/16/2023 CBC W/DIF F immature granulocytes 0.8 % no define d refere nce range Not Available [facility] (Lab) [address] [facility], [place], [address], 10/17/2023 05:39:48 10/16/19 24 10/16/2023 CBC W/DIF F absolute neutrophils 9.6 10'3/ uL 1.5-8. 0 high Not Available [facility] (Lab) [address] [facility], [place], [address], 10/17/2023 05:39:48 10/16/19 24 10/16/2023 CBC W/DIF F absolute lymphocytes 2.5 10'3/ uL 1.0-4. 0 Not Available [facility] (Lab) [address] [facility], [place], [address], 10/17/2023 05:39:48 10/16/19 24 10/16/2023 CBC W/DIF F absolute monocytes 0.7 10'3/ uL 0.2-1. 0 Not Available [facility] (Lab) [address] [facility], [place], [address], 10/17/2023 05:39:48 10/16/19 24 10/16/2023 CBC W/DIF F absolute eosinophils 0.2 10'3/ uL 0.0-0. 6 Not Available [facility] (Lab) [address] [facility], [place], [address], 10/17/2023 05:39:48 10/16/19 24 10/16/2023 CBC W/DIF F absolute basophils 0.1 10'3/ uL 0.0-0. 3 Not Available [facility] (Lab) [address] [facility], [place], [address], 10/17/2023 05:39:48 10/16/19 24 10/16/2023 CBC W/DIF F absolute immature granulocytes 0.1 10'3/ uL 0.00-0 .10 2023 4:18 AM: P indic ates parti al resul ts on a panel have been relea sed. Addit ional resul ts will follo w. 2023 4:18 AM: This resul t has been final verif ied. No addit ional or feliciano ed resul ts are expec ernie. Not Available [facility] (Lab) [address] [facility], [place], [address], 10/17/2023 05:39:48 10/16/19 24 10/16/2023 CMP(C OMPRE HENSI VE METAB OLIC PANEL ) sodium 139 mmol/ L 133-14 6 Not Available [facility] (Lab) [address] [facility], [place], [address], 10/17/2023 05:39:52 10/16/19 24 10/16/2023 CMP(C OMPRE HENSI VE METAB OLIC PANEL ) potassium 4.4 mmol/ L 3.5-5. 1 Not Available [facility] (Lab) [address] [facility], [place], [address], 10/17/2023 05:39:52 10/16/19 24 10/16/2023 CMP(C OMPRE HENSI VE METAB OLIC PANEL ) chloride 105 mmol/ L 98-107 Not Available [facility] (Lab) [address] [facility], [place], [address], 10/17/2023 05:39:52 10/16/19 24 10/16/2023 CMP(C OMPRE HENSI VE METAB OLIC PANEL ) carbon dioxide 27 mmol/ L 21-31 Not Available [facility] (Lab) [address] [facility], [place], [address], 10/17/2023 05:39:52 10/16/19 24 10/16/2023 CMP(C OMPRE HENSI VE METAB OLIC PANEL ) anion gap 7 mmol/ L 4-13 Not Available [facility] (Lab) [address] [facility], [place], [address], 10/17/2023 05:39:52 10/16/19 24 10/16/2023 CMP(C OMPRE HENSI VE METAB OLIC PANEL ) blood urea nitrogen 12 mg/dL 7-25 Not Available [facility] (Lab) [address] [facility], [place], [address], 10/17/2023 05:39:52 10/16/19 24 10/16/2023 CMP(C OMPRE HENSI VE METAB OLIC PANEL ) creatinine 0.94 mg/dL 0.60-1 .30 Not Available [facility] (Lab) [address] [facility], [place], [address], 10/17/2023 05:39:52 10/16/19 24 10/16/2023 CMP(C OMPRE HENSI VE METAB OLIC PANEL ) egfrcr (CKD-epi 2020) 85 mL/mi n/1.7 3_m2 >=60 Not Available [facility] (Lab) [address] [facility], [place], [address], 10/17/2023 05:39:52 10/16/19 24 10/16/2023 CMP(C OMPRE HENSI VE METAB OLIC PANEL ) calcium 9.0 mg/dL 8.3-10 .5 Not Available [facility] (Lab) [address] [place], [address], 10/17/2023 05:39:52 10/16/19 24 10/16/2023 CMP(C OMPRE HENSI VE METAB OLIC PANEL ) glucose 80 mg/dL 70-100 Not Available [facility] (Lab) [address] [facility], [place], [address], 10/17/2023 05:39:52 10/16/19 24 10/16/2023 CMP(C OMPRE HENSI VE METAB OLIC PANEL ) protein, total 6.5 g/dL 6.4-8. 3 Not Available [facility] (Lab) [address] [facility], [place], [address], 10/17/2023 05:39:52 10/16/19 24 10/16/2023 CMP(C OMPRE HENSI VE METAB OLIC PANEL ) albumin 3.8 g/dL 3.5-5. 0 Not Available [facility] (Lab) [address] [facility], [place], [address], 10/17/2023 05:39:52 10/16/19 24 10/16/2023 CMP(C OMPRE HENSI VE METAB OLIC PANEL ) ALT 21 units /L 9-43 Not Available [facility] (Lab) [address] [facility], [place], [address], 10/17/2023 05:39:52 10/16/19 24 10/16/2023 CMP(C OMPRE HENSI VE METAB OLIC PANEL ) alkaline phosphatase 176 units /L 34-104 high Not Available [facility] (Lab) [address] [place], [address], 10/17/2023 05:39:52 10/16/19 24 10/16/2023 CMP(C OMPRE HENSI VE METAB OLIC PANEL ) AST 20 units /L 13-39 Not Available [facility] (Lab) [address] [place], [address], 10/17/2023 05:39:52 10/16/19 24 10/16/2023 CMP(C OMPRE HENSI VE METAB OLIC PANEL ) bilirubin, total 0.3 mg/dL 0.2-1. 2 Not Available [facility] (Lab) [address] [place], [address], 10/17/2023 05:39:52 09/11/19 24 09/11/2023 US, obste tric, follo w-up No observ ation record ed. [email or web address], [place], [address], 09/14/2023 08:39:15 09/11/19 24 09/11/2023 US, obste tric, follo w-up No observ ation record ed. [facility] [address], [place], [address], 09/11/2023 17:34:18 10/07/19 24 10/07/2023 non-s tress test No observ ation record ed. [address], [place], [address], 10/07/2023 14:42:37 Result Notes None recorded. Problems Name Problem SNOMED Code Status Onset Date Resolution Date Notes Provider Name and Address Organization Details Recorded Time 13251402 Completed 202310/14/2023 Orquidea Busby [facility] 22:04:48 Problem Notes None recorded. Procedures Surgical History Date Name Laterality Status Provider Name and Address Organization Details Recorded Time 03/13/20 23 Date of Last Pap Smear completed Orquidea Busby [facility] 03/13/2023 15:03:03 03/23/19 22 procedure on upper arm completed Orquidea Busby [facility] 03/13/2023 15:07:07 07/22/19 19 patellaplasty completed Orquidea Busby [facility] 03/13/2023 15:06:00 02/21/20 18 Knee arthroscopy/surge ry completed Orquidea Busby [facility] 03/13/2023 15:05:42 Imaging Results Imaging Date Name Status LastModified by Organiz ation Details LastModified Time 09/11/2023 US, obstetric, follow-up completed [email or web address], [place], [address], 09/14/2023 08:39:15 09/11/2023 US, obstetric, follow-up completed [facility] [address], [place], [address], 09/11/2023 17:34:18 10/07/2023 non-stress test completed [address], [place], [address], 10/07/2023 14:42:37 Procedure Notes None recorded. Medical Equipment None Reported. Allergies No known drug allergies Medications Name Sig Start Date Stop Date Status Note LastModified by Organization Details LastModified Time amoxicillin 500 mg capsule 10/15 completed Not Available Not Available Not Available fluconazole 150 mg tablet Take 1 tablet by oral route. 10/15 completed Not Available Not Available Not Available hydrocodone 5 mg-acetaminop hen 325 mg tablet 10/15 completed Not Available Not Available Not Available active Not Available Not Avai lable Not Available Vitals Date Recorded Body height Body mass index (BMI) Body weight Systolic blood pressure Diastolic blood pressure Provider Name and Address Organization Details Last Updated DateTime 09/11/2023 165.1 cm 34.6 kg/m2 61242.21 296 g 108 mm[Hg] 76 mm[Hg] Orquidea Busby [facility] 4 15:41:52 Date Recorded Body height Body mass index (BMI) Body weight Systolic blood pressure Diastolic blood pressure Provider Name and Address Organization Details Last Updated DateTime 09/25/2023 165.1 cm 34.5 kg/m2 00970.77 6012 g 116 mm[Hg] 80 mm[Hg] Sirisha Morocho [facility] 4 10:14:33 Date Recorded Body height Body mass index (BMI) Body weight Systolic blood pressure Diastolic blood pressure Provider Name and Address Organization Details Last Updated DateTime 10/02/2023 165.1 cm 35.6 kg/m2 43894.76 718 g 128 mm[Hg] 88 mm[Hg] Orquidea Busby [facility] 4 15:39:55 Date Recorded Body height Body mass index (BMI) Body weight Systolic blood pressure Diastolic blood pressure Provider Name and Address Organization Details Last Updated DateTime 10/16/2023 165.1 cm 32.8 kg/m2 43216.42 g 149 mm[Hg] 95 mm[Hg] Kati Mckeon [facility] 4 15:43:44 Date Recorded Body height Body mass index (BMI) Body weight Systolic blood pressure Diastolic blood pressure Provider Name and Address Organization Details Last Updated DateTime 11/06/2023 165.1 cm 32 kg/m2 92211.74 g 121 mm[Hg] 86 mm[Hg] Orquidea Busby [facility] 4 12:26:53 Social History Question Answer Notes LastModified by Organizat ion Details LastModified Time Tobacco Smoking Status Never Smoker Orquidea galvan, [facility] 04/10/2023 12:28:30 What Is Your Level Of Alcohol Consumption? Occasional [email or web address] Information not available 04/10/2023 If You Are , What Was Your Level Of Alcohol Consumption Prior To ? Occasional [email or web address] Information not available 04/10/2023 How Many Years Have You Consumed Alcohol? 6 [email or web address] Information not available 04/10/2023 Are You Blind Or Do You Have Difficulty Seeing? No Information n ot available 03/13/2023 What Is Your Level Of Caffeine Consumption? Moderate Information not available 04/10/2023 How Much Tobacco Do You Chew? None [email or web address] Information not available 04/10/2023 In The 14 Days Before Symptom Onset, Have You Had Close Contact With A Laboratory-confirm ed COVID-19 While That Case Was Ill? No [email or web address] Information n ot available 03/13/2023 In The 14 Days Before Symptom Onset, Have You Had Close Contact With A Person Who Is Under Investigation For COVID-19 While That Person Was Ill? No [email or web address] Information not available 03/13/2023 Have You Been To An Area Known To Be High Risk For COVID-19? No [email or web address] Information not available 03/13/2023 Are You Deaf Or Do You Have Serious Difficulty Hearing? No [email or web address] Information not available 03/13/2023 What Type Of Diet Are You Following? REGULAR [email or web address] Information n ot available 03/13/2023 What Is The Highest Grade Or Level Of School You Have Completed Or The Highest Degree You Have Received? 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 Yes [email or web address] Information not available 04/10/2023 Do You Use Protection During Sex? No [email or web address] Information not available 04/10/2023 Do You Use Your Seat Belt Or Car Seat Routinely? Yes Information not available 03/13/2023 Do You Have Smoke And Carbon Monoxide Detectors In Your Home? Yes [email or web address] Information not available 03/13/2023 How Much Tobacco Do You Smoke? No [email or web address] Information not available 03/13/2023 Do You Feel Stressed (tense, Restless, Nervous, Or Anxious, Or Unable To Sleep At Night)? [id number] [email or web address] Information not available 03/13/2023 Do You Use Any Illicit Or Recreational Drugs? No [email or web address] Information not available 03/13/2023 Do You Use Sunscreen Routinely? No [email or web address] Information not available 04/10/2023 Has Tobacco Cessation Counseling Been Provided? No [email or web address] Information not available 04/10/2023 Have You Used IV Drugs? No [email or web address] Information not available 04/10/2023 Do You Or Have You Ever Used Any Other Forms Of Tobacco Or Nicotine? No [email or web address] Information not available 04/10/2023 Sex: Unknown Functional Status Question Answer Note LastModified by Organizat ion Details LastModified Time Do you have difficulty walking or climbing stairs? No [email or web address] Information not available 04/10/2023 Are you able to walk? YESWOREST [email or web address] Information not available 03/13/2023 Are you able to care for yourself? Yes [email or web address] Information not available 04/10/2023 Do you have difficulty dressing or bathing? No [email or web address] Information not available 04/10/2023 What is your exercise level? Moderate [email or web address] Information not available 04/10/2023 Mental Status None recorded. Family History Relationship Description Onset Age of this Age Resolved Age Notes LastModified by Organization Details LastModified Time Maternal Grandmother Malignant tumor of breast [email or web address] Not available 03/13 15:04:08 Mother Myocardial infarction [email or web address] Not available 02/21 15:04:33 Paternal Grandfather Myocardial infarction [email or web address] Not available 02/21 15:04:33 Paternal Grandmother Kidney disease [email or web address] Not available 03/13 15:04:48 Medical History Condition Response Allergies (Food, seasonal, environmental ) N Other N Breast Cancer N Drug/Latex Allergies/Reactions N Blood Transfusion N Dermatologic Disorders N Lung Disease N Defects or Inherited Disease N Breast Problem N Gestational Diabetes N Hematologic disorders N Anesthesia Complications N History of STI N Deep Vein Thrombosis N Polycystic ovary syndrome N Anxiety Disorder N Autoimmune disease N Arthritis N Infertility N Polyps N Acid Reflux (GERD) N History of abnormal pap N Cancer N Stroke N Varicosities N Neurologic/Epilepsy N Endometriosis N High Cholesterol N Headaches N Fibromyalgia N Kidney Disease N Heart Problems N Kidney or Bladder Problems N Thyroid Problems N GI Problems N Eating Disorder N Anemia N Art (IVF or FET) N Psychiatric Illness N Ovarian Cancer N Diabetes N Pulmonary (TB, Asthma) N Hepatitis/Liver Disease N No Past Medical History Y Eczema N Urinary Tract Infection N Abuse/Domestic Violence N Asthma N Trauma/Violence N Depression/ depression N Heart Disease N Pre-Eclampsia Y Hypertension Y Osteoporosis N Thrombophilias N Gynecological History Statement/Question Response Date of Last Mammogram Date of LMP 01/18/2023 On BCP's at Conception? N N Was last menstrual period normal Y STIs/STDs N HPV Vaccine N Duration of Flow (days) 5 Current Control Method None Frequency of Cycle (Q days) 29 Sexually Active? Y Date of DEXA bone scan Age of first menstrual cycle 13 Date of Last Pap Smear 03/13/2023 Sexual Problems? N Desired Control Method None LMP Approximate N Obstetrics History GPAL:G 1 P 1 0 0 1 Type Value Full Term 1 Living 1 Total 1 Past Encounters Encounter ID Performer Location Encounter Start Date Encounter Closed Date Diagnosis/Indication Diagnosis SNOMED-CT Code Diagnosis ICD10 Code Diagnosis Note [id number] [facility] [address] [address] 03/13/2023 13:51:30 03/13/2023 16:02:52 [id number] Jillian Mckenna [facility] [address] [place] [address] 03/13/2023 13:51:48 03/13/2023 15:20:16 Amenorrhea 06248116 N91.2 Gynecologi c examination 60358263 Z01.419 [id number] Jillian Mckenna [facility] [address],[place] [address] 04/10/2023 11:28:51 04/10/2023 12:35:47 Gestation period, 11 weeks 20231337 Z3A.11 [id number] [facility] [address] [place] [address] 04/10/2023 11:30:43 04/10/2023 12:04:23 screening 380318248 Z36.82 Z3A.11 [id number] Jillian Mckenna [facility] [address],[place] [address] 05/08/2023 11:37:29 05/08/2023 12:24:17 Routine care 811026278 Z34.92 [id number] [facility] [address] [place] [address] 06/05/2023 10:30:13 06/05/2023 11:32:49 screening for malformation 339785284 Z36.3 Z3A.19 [id number] Jillian Mckenna [facility] [address] [place] [address] 06/05/2023 10:30:37 06/05/2023 11:59:49 Routine care 672622422 Z34.92 [id number] Jillian Mckenna [facility] [address],[place] [address] 07/03/2023 09:52:22 07/03/2023 10:11:15 Routine care 243457689 Z34.92 [id number] Jillian Mckenna [facility] [address],[place] [address] 07/31/2023 13:49:03 07/31/2023 14:22:58 Routine care 274184314 Z34.92 [id number] Jillian Mckenna [facility] [address],[place] [address] 08/14/2023 15:23:35 08/14/2023 15:48:53 Routine care 089050897 Z34.92 [id number] RIVERA DIAZ MD [place] [address],[place] [address] 08/28/2023 15:45:30 08/31/2023 03:56:39 Routine care 877996637 Z34.03 [id number] Sandy De La Garza [facility] [address],[place] [address] 09/10/2023 12:03:49 09/10/2023 12:39:10 Leukocytes in urine 892116553 R82.79 Pt here for BP check today. Sent portal message c/o GONZALEZ that is not relieved with Tylenol. Denies visual changes/RU Q pain/epiga stric pain. Just has swelling in feet. Initial BP mildly elevated and repeat normal. Had pt leave urine to check protein, protein trace, but did show +2 leuks. Reviewed with Beer and can do baseline [facility] labs and will send urine for culture. Discussed results with pt and plan. Gave precaution s and pt verbalized understand ing. ESEQUIEL hardin [id number] Esthela Carrillo [facility] [address],[place] [address] 09/11/2023 14:54:49 09/12/2023 09:17:12 Medical examination for suspected condition 738964238 Z03.74 Z3A.33 [id number] Jillian Mckenna [facility] [address],[place] [address] 09/11/2023 14:56:08 09/11/2023 15:57:31 Routine care 695998306 Z34.92 [id number] Jillian Mckenna [facility] [address],[place] [address] 09/25/2023 10:07:19 09/25/2023 10:26:48 Routine care 738523519 Z34.92 [id number] Jillian Mckenna [facility] [address],[place] [address] 10/02/2023 14:55:17 10/02/2023 16:10:06 Routine care 526686857 Z34.92 [id number] Jillian Mckenna [facility] [address],[place] [address] 10/16/2023 15:34:50 10/16/2023 16:10:27 Pre-eclampsia 147171096 O14.90 plan rpt labs, if any sxs to labor for evaluation f/u 3 week pp [id number] Orquidea Busby [place] [address],[place] [address] 11/06/2023 12:15:19 11/06/2023 16:01:38 care 886804760 Z39.2 normal visitf/u 6 month wwe or sooner if needed Health Concerns Section Related Observation LastModified by Organization Detai ls LastModified Time None Recorded Concern Status LastModified by Organization Details LastModified Time None Recorded Advance Directives Directive None Recorded Payers Encounter Date Sequence Insurance Name Policy Number Policy Kathleen Covered Member ID Kathleen Member ID Guarantor Name 09/11/2023 1 [employer] - CHOICE (POS II) [id number] Hal Flanagan [id number] Audrey Panchito 09/25/2023 1 [employer] - CHOICE (POS II) [id number] Hal Flanagan [id number] Audrey Flanagan 10/02/2023 1 [employer] - CHOICE (POS II) [id number] Hal Flanagan [id number] Audrey Flanagan 10/16/2023 1 [employer] - CHOICE (POS II) [id number] Hal Flanagan [id number] Audrey Flanagan 11/06/2023 1 [employer] - CHOICE (POS II) [id number] Hla Flanagan [id number] Audrey Flanagan Notes Date Note Type Note Provider Name and Address Organization Details Recorded Time 4 text/html preeclampsia f/ubp's elevated, no severe range bpdenies gonzalez, visual changes, epigastric paindid complain of gonzalez day milk came in, resolvedotherwise no complaints Jillian Mckenna CNM [address], [place], [address], [facility] 10/16/2023 16:02:13 4 text/html VisitReported bypatient.Quality: Context:complications of : none; complications of labor: none; complications: ; feeding choice: breast and bottle; good support from partner/family Associated Symptoms:no abnormal bleeding; no vaginal discharge; no pelvic pain; no constipation; no dysuria; no urinary incontinence; no problems;baby blues; baby blues resolved Contraception Plan:declines contraceptionNotes:bab y boy doing well, no complaints Orquidea galvan, [facility] 11/06/2023 15:07:53 OBGyn Episode Ob Episode Information Episode Created Date Number of Fetuses Patient Bloodtype Patient rh Status Prepregnancy Weight lbs Domestic Partner Domestic Partner Phone Father Name Maintenance Helper Status 04/10/19 24 1 O Positive 180 Hal Flanagan CLOSED Fetus Data First Name Last Name Admitted to NICU Weight (g) Sex Living Outcome Pediatric Complications Fetus ID Race Codes Race Delivery Type 3090.09 55 M Full Term [id number] Vaginal Delivery Hardik Calculation Initial Hardik Date Initial Exam Date Initial Exam Provider Initial Ultrasound Date Last Menstrual Period Date Ultra Sound Weeks Gestation 10/27/2023 03/13/2023 03/13/2023 01/18/2023 7 Eighteen To Twenty Week Hardik Update Ultra Sound Date Fundal Height At Umbil Quickening Date Ultra Sound Latest Weeks Gestation Final Hardik Confirmed By Final Hardik Confirmed Date Final Hardik Date Ultra Sound Latest Days Gestation 0 [email or web address] 04/10/2023 10/25/19 24 0 Pre-tg Flowsheet Flowsheet Date 04/10/2023 Castro Score Blood Edema Fundus Height Fundus Units Glucose Ketones Leukocytes Nitrite Labor Signs Protein Cervic Dilation Cervic Effacement Cervic Station neg none none trace Type Weight in lbs Pre/Post Dialysis Refused Weight 183.144504248905 BP Diastolic BP Location Tested BP Systolic BP Type 84 128 Fetus Heart Rate Present Fetus Movement A No Comments patient is having cramping, nausea and vomiting. 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 precautions and education f/u 4 weeks anatomy scan Flowsheet Date 06/05/2023 Castro Score Blood Edema Fundus Height Fundus Units Glucose Ketones Leukocytes Nitrite Labor Signs Protein Cervic Dilation Cervic Effacement Cervic Station Type Weight in lbs Pre/Post Dialysis Refused BP Diastolic BP Location Tested BP Systolic BP Type Fetus Heart Rate Present Fetus Movement Comments Flowsheet Date 06/05/2023 Castro Score Blood Edema Fundus Height Fundus Units Glucose Ketones Leukocytes Nitrite Labor Signs Protein Cervic Dilation Cervic Effacement Cervic Station neg trace none trace Type Weight in lbs Pre/Post Dialysis Refused Weight 190.036583322421 BP Diastolic BP Location Tested BP Systolic BP Type 77 119 Fetus Heart Rate Present Fetus Movement A Yes Comments patient is having some swell ing, pain, discharge, nausea and vomiting. reviewed precautions, doing well, education, and precautions f/u 4 weeks. anatomy complete Flowsheet Date 07/03/2023 Castro Score Blood Edema Fundus Height Fundus Units Glucose Ketones Leukocytes Nitrite Labor Signs Protein Cervic Dilation Cervic Effacement Cervic Station neg none none trace Type Weight in lbs Pre/Post Dialysis Refused Weight 198.629086525402 BP Diastolic BP Location Tested BP Systolic BP Type 85 131 Fetus Heart Rate Present A 134 Fetus Movement A Yes Comments Patient states that having s ome pain, discharge, swelling, nausea and vomiting. increase hydration, education and precautions f/u 4 weeks with growth Flowsheet Date 07/31/2023 Castro Score Blood Edema Fundus Height Fundus Units Glucose Ketones Leukocytes Nitrite Labor Signs Protein Cervic Dilation Cervic Effacement Cervic Station neg trace 25 none trace Type Weight in lbs Pre/Post Dialysis Refused Weight 203.14938005592 BP Diastolic BP Location Tested BP Systolic BP Type 96 132 88 140 82 138 Fetus Heart Rate Present A 142 Present Fetus Movement A Yes Comments Patient is having some pain, discharge, swelling and nausea. reviewed education precaution, bp up anxious about blood draw rpt normotensive, precautions and education f/u 2 weeks Flowsheet Date 08/14/2023 Castro Score Blood Edema Fundus Height Fundus Units Glucose Ketones Leukocytes Nitrite Labor Signs Protein Cervic Dilation Cervic Effacement Cervic Station none 28 Type Weight in lbs Pre/Post Dialysis Refused Weight 204.791847906460 BP Diastolic BP Location Tested BP Systolic BP Type 74 110 Fetus Heart Rate Present A 146 Present Fetus Movement A Yes Comments Patient states that having s ome discharge and swelling. doing well, not planning on classes, sent order for breast pump in, +FHR, increase rest when needed, education and precautions f/u 2 weeks Flowsheet Date 08/28/2023 Castro Score Blood Edema Fundus Height Fundus Units Glucose Ketones Leukocytes Nitrite Labor Signs Protein Cervic Dilation Cervic Effacement Cervic Station Type Weight in lbs Pre/Post Dialysis Refused Weight 207.496288172484 BP Diastolic BP Location Tested BP Systolic BP Type 85 131 Fetus Heart Rate Present A 135 Fetus Movement A Yes Comments Doing well, good movem ent. Some BH contractions. No LOF or VB. Discussed tdap and preadmission. RTC 2 weeks. Flowsheet Date 09/10/2023 Castro Score Blood Edema Fundus Height Fundus Units Glucose Ketones Leukocytes Nitrite Labor Signs Protein Cervic Dilation Cervic Effacement Cervic Station Type Weight in lbs Pre/Post Dialysis Refused BP Diastolic BP Location Tested BP Systolic BP Type 91 126 84 132 Fetus Heart Rate Present Fetus Movement Comments Flowsheet Date 09/11/2023 Castro Score Blood Edema Fundus Height Fundus Units Glucose Ketones Leukocytes Nitrite Labor Signs Protein Cervic Dilation Cervic Effacement Cervic Station Type Weight in lbs Pre/Post Dialysis Refused BP Diastolic BP Location Tested BP Systolic BP Type Fetus Heart Rate Present Fetus Movement Comments Flowsheet Date 09/11/2023 Castro Score Blood Edema Fundus Height Fundus Units Glucose Ketones Leukocytes Nitrite Labor Signs Protein Cervic Dilation Cervic Effacement Cervic Station none Type Weight in lbs Pre/Post Dialysis Refused Weight 208.798785315732 BP Diastolic BP Location Tested BP Systolic BP Type 76 108 Fetus Heart Rate Present Fetus Movement A Yes Comments Patient had bloodwork and le ft urine sample yesterday. Patient is having cramping, headache, discharge, swelling and nausea. labs wnlbp normotensive today, gonzalez resolved with tylenol. precautions reviewed. efw 40%, +FM, preadmission scheduled. has breast pump, f/u 2 weeks plan GBS Flowsheet Date 09/25/2023 Castro Score Blood Edema Fundus Height Fundus Units Glucose Ketones Leukocytes Nitrite Labor Signs Protein Cervic Dilation Cervic Effacement Cervic Station neg none 36 Type Weight in lbs Pre/Post Dialysis Refused Weight 207.992838495234 BP Diastolic BP Location Tested BP Systolic BP Type 80 L arm 116 sitting Fetus Heart Rate Present A 152 Present Fetus Movement A Yes Comments GBS collected, precautions a nd education, +FM, f.u one week Flowsheet Date 10/02/2023 Castro Score Blood Edema Fundus Height Fundus Units Glucose Ketones Leukocytes Nitrite Labor Signs Protein Cervic Dilation Cervic Effacement Cervic Station 1+ 1cm 50% -3 Type Weight in lbs Pre/Post Dialysis Refused Weight 214.435950241763 BP Diastolic BP Location Tested BP Systolic BP Type 88 128 Fetus Heart Rate Present A 145 Fetus Movement A Yes Comments Patient is having some cramp ing, contractions, discharge, and swelling. results of urine back after 2 weeks! sxs have resolved, will resend culture. denies gonzalez, visual changes, epigastric pain, bp normotensive, precautions and education f/u one week Menstrual History Last Menstrual Date Menses Monthly On Bcp Conception Prior Menses Frequency Hcg Plus Date Menarche Onset Age 1001/18/2023 Genetic Screening And Infection History Question Response Note Mental Retardation/Autism false Patient's Age Will Be 35 Yea rs Or Older At Estimated Date of Delivery false Thalassemia (Burmese, Cymraes, Mediterranean, Or Background): MCV < 80 false Neural Tube Defect (Meningom yelocele, Spina Bifida, Or Anencephaly) false Congenital Heart Defect false Down Syndrome false Yong-Sachs (eg, Baptism, Cajun, Samoan-Citizen Of The [place]) f alse Omar Disease false Sickle Cell Disease Or Trait () false Hemophilia Or Other Blood Disorders false Muscular Dystrophy false Cystic Fibrosis false Marilin's Chorea false Intellectual Disability/Autism false If Yes, Was Person Tested For Fragile X? false Other Inherited Genetic Or Chromosomal Disorder false Maternal Metabolic Disorder (eg, Type 1 Diabetes , PKU) false Patient Or Baby's Father Had A Child With Defects Not Listed Above false Recurrent Loss, Or A Stillbirth false Medications (including Suppl ements, Vitamins, Herbs, OTC Drugs), Illicit/Recreational Drugs, Alcohol true pnv, b6, u nisom If Yes, Agent(s) And Strength/Dosage false Any Other Genetic History false Live With Someone With TB Or Exposed To TB false Patient Or Partner Has History Of Genital Herpes false Rash Or Viral Illness Since Last Menstrual Perio d false History Of STD, Gonorrhea, Chlamydia, HPV, Syphi lis false Other Infection History false History of HIV false History of Hepatitis false Prior GBS-infected child false Hemoglobinopathy Or Carrier false Other Structural Defect false Recent Travel History Outside of Country false Delivery Information Delivery Date Delivery Type Labor Anesthesia Weeks Gestation Incision Type Labor Labor Length Hrs Delivered By Post Complications Tubal Sterilization Discharge Date Comments 4 37.3 Jillian Mckenna CNM preeclamp babita Discharge Information Feeding Method Contraceptive Method Maternal HG B and HCT Levels
--- OUTSIDE RECORDS SUMMARY | 2024-04-23 11:35 | XMS_ITS | Data Portability ---
Author Organization [facility] [place] , [facility] Address [address] [place] [address] Assessment No assessment recorded. Plan of Treatment Reminders Order Date Submit Date Provider Last Modified By Organization Details Last Modified Time Details Appointments None recorded. Lab HPV E6+E7 mRNA, qualitative PCR, cervix - last pap unknown, lmp 02/26/2022, b/c none, not , cervical [address], [address], 2 17:30:02 pap, LB - last pap unknown, lmp 02/26/2022, b/c none, not , cervical 2021 022 formerly [facility], [address] [place], [address], 17:30:02 Referral None recorded. Procedures None recorded. Surgeries None recorded. Imaging None recorded. Medication Orders None recorded. Patient TargetsNo targets recorded. Patient InstructionsNo instructions recorded. Reason for Referral None Reported. Results Created Date Observation Date Name Description Value Unit Range Abnormal Flag Note LastModifiedBy Organization Detail LastModifiedTime 03/20/20 22 03/21/2022 HPV HIGH RISK HPV high risk Negati ve negati ve normal The HPV High Risk assay is inten ded for use as co-te sting with cytol ogy and not as a subst itute for regul ar cervi ham cytol ogy scree beryl. This assay is not inten ded for use as a scree beryl devic e for women under age 30 with alexus l cervi ham cytol ogy. Not Available [facility] [address] [place], [address], 03/21/2022 15:52:39 03/20/20 22 03/23/2022 THINP REP TIS PAP clinical information: normal None given Not Available [address] [address] [place], [address], 03/23/2022 15:58:15 03/20/20 22 03/23/2022 THINP REP TIS PAP LMP: normal Not Available [address] [address] [place], [address], 03/23/2022 15:58:15 03/20/20 22 03/23/2022 THINP REP TIS PAP prev. Pap: normal None given Not Available [address] [place], [address], 03/23/2022 15:58:15 03/20/20 22 03/23/2022 THINP REP TIS PAP prev. BX: normal None given Not Available [address] [address] [place], [address], 03/23/2022 15:58:15 03/20/20 22 03/23/2022 THINP REP TIS PAP source: normal Cervi x Not Available [address] [address] [place], [address], 03/23/2022 15:58:15 03/20/20 22 03/23/2022 THINP REP TIS PAP statement of adequacy: normal Satis facto ry for evalu ation . Endoc ervic al/tr ansfo rmati on zone compo nent absen t. Not Available [address] [address] [place], [address], 03/23/2022 15:58:15 03/20/20 22 03/23/2022 THINP REP TIS PAP interpretati on/result: normal Negat dari for intra epith elial lesio n or malig july . Not Available [address] [address], [place], [address], 03/23/2022 15:58:15 03/20/20 22 03/23/2022 THINP REP TIS PAP comment: normal This Pap test has been evalu ated with екатерина bernal techn ology . Not Available [address], [place], [address], 03/23/2022 15:58:15 03/20/20 22 03/23/2022 THINP REP TIS PAP cytotechnolo gist: normal MVB, CT( CP) CT Scree beryl Locat ion: [address] [address] [place] [address] Not Available [address] [address], [place], [address], 03/23/2022 15:58:15 03/20/20 22 03/23/2022 THINP REP TIS PAP comment EXPLA NATOR Y NOTE: The Pap is a scree beryl test for cervi ham cance r. It is not a diagn ostic test and is subje ct to false negat dari and false posit dari resul ts. It is most relia ble when a satis facto ry sampl e, regul michael obtai mateo, is submi tted with relev ant clini ham findi ngs and histo ry, and when the Pap resul t is evalu ated along with histo conrad and curre nt clini ham infor matio n. Not Available [address], [place], [address], 03/23/2022 15:58:15 Result Notes None recorded. Problems No Known Problems Medical Equipment None Reported. Allergies No known drug allergies Medications Name Sig Start Date Stop Date Status Note LastModified by Organization Details LastModified Time hydrocodone 5 mg-acetaminop hen 325 mg tablet TAKE 1 TABLET BY MOUTH EVERY 6 HOURS NEEDED FOR PAIN 03/20 completed Not Available Not Available Not Available Vitals Date Recorded Body weight Provider Name an d Address Organization Details Last Updated DateTime 03/20/2022 86915.88 g Heydi Keen [employer] [facility] IV 03/20/2022 16:37:28 Date Recorded Systolic blood pressure Diastolic blood pressure Provider Name and Address Organization Details Last Updated DateTime 03/20/2022 114 mm[Hg] 70 mm[Hg] Heydi Keen Info 03/20/2022 16:37:24 Social History Question Answer Notes LastModified by Organizat ion Details LastModified Time Tobacco Smoking Status Never Smoker Heydi Keen null, Info 03/20/2022 16:37:45 What Is Your Level Of Alcohol Consumption? Occasional Information not available 03/20/2022 How Many Years Have You Consumed Alcohol? 4 Information not available 03/20/2022 Are You Currently Employed? Yes Information not available 03/20/2022 What Type Of Diet Are You Following? REGULAR Information not available 03/20/2022 Do You Or Have You Ever Used E-cigarettes Or Vape? Never Used Electronic Cigarettes Information not available 03/20/2022 How Many Children Do You Have? 0 Information not available 03/20/2022 What Is Your Relationship Status? Information not available 03/20/2022 Are You Sexually Active? Yes Information not available 03/20/2022 Do You Use Any Illicit Or Recreational Drugs? No Information not available 03/20/2022 Sex: Unknown Functional Status Question Answer Note LastModified by Organization D etails LastModified Time What is your exercise level? Heavy Information not available 03/20/2022 Mental Status None recorded. Family History Relationship Description Onset Age of this Age Resolved Age Notes LastModified by Organization Details LastModified Time Maternal Grandmother Malignant tumor of breast epigg Not available 2021 16:37:45 Mother Myocardial infarction epigg Not available 03/20 16:37:45 Maternal Grandfather Myocardial infarction epigg Not available 03/20 16:37:45 Medical History No medical history recorded. Gynecological History Statement/Question Response Flow Heavy Date of LMP 03/01/2022 Frequency of Cycle (Q days) 25 days Duration of Flow (days) 2-4 Current Control Method Condoms Age at Menarche 13 Obstetrics History GPAL:G 0 P 0 0 0 0 Past Encounters Encounter ID Performer Location Encounter Start Date Encounter Closed Date Diagnosis/Indication Diagnosis SNOMED-CT Code Diagnosis ICD10 Code Diagnosis Note [id number] María Gong MD [facility] [address] [place] [address] 03/20/2022 16:12:59 03/20/2022 17:08:41 Gynecologic examination 43396968 Z01.419 Screening for malignant neoplasm of cervix 627464102 Z12.4 Health Concerns Section Related Observation LastModified by Organization Detai ls LastModified Time None Recorded Concern Status LastModified by Organization Details LastModified Time None Recorded Advance Directives Directive None Recorded Payers Encounter Date Sequence Insurance Name Policy Number Policy Kathleen Covered Member ID Kathleen Member ID Guarantor Name 03/20/2022 1 [employer] (POS) [id number] Hal Flanagan [id number] Audrey Flanagan Notes Date Note Type Note Provider Name and Address Organization Details Recorded Time 03/20/2022 text/html Annual GYNReport ed bypatient.History: no gynecologic complaints Menstrual cycle:Normal menses Urinary symptoms:No hematuria; No incontinence Vulva:No genital lesion Vagina:Normal vaginal discharge Breast:No breast pain; No breast lump; No nipple discharge Sexual complaints:No sexual complaints; No pain during intercourse; Normal libido Menopausal Symptoms:No menopausal symptoms; Normal vaginal lubrication Audrey presents for annual exam, and is not currently using contraception. Her periods are fairly regular, but they are painful and heavy the first day or two. She had some random pelvic pain for a couple of months, but seemed to stop about six weeks ago. 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 María Gong MD [address] [facility], [place], [address], [facility] - [place] 03/20/2022 17:08:03 OBGyn Episode No OBEpisode recorded.
== END 2024-04-23 11:32 | disposition home or self-care (01) ==
LOC: ANHLAB 11:33
PROVIDERS: Visit Provider Advanced Practice Midwife
DX: N91.2 Amenorrhea, unspecified (principal)
CPT/HCPCS: 36415; 84702

== ENCOUNTER 2024-10-26 10:31 | Observation (INO) | payer OTHER, SELFPAY ==
--- NOTE | 2024-10-26 10:31 | OBADM ---
This patient, Audrey Flanagan, admitted to the OB room OB Post 116 for observation. Patient/family oriented to hospital policies and general routines including ID bracelet, bed and alarms, visiting hours, pain management, procedures, bathroom and other care routines, personal items, smoking policy, room service/diet, and visiting hours. Patient/Family are encouraged to report perceived risks to care and to ask questions if they do not understand what they are told or what they should do.
[2024-10-26] MEDS: CYCLOBENZAPRINE HCL 10 MG TABLET PO (10:55)
[2024-10-26 10:59] VITALS: BMI 35.2
[2024-10-26 11:06] LABS: Hematocrit 37.8 % (37.0-47.0); Hemoglobin 12.3 g/dL (12.0-15.0); Immature Granulocyte Percent A 1.5 % (0-0.5); Lymphocytes Absolute Auto 1.97 K/mm3 (0.9-3.2); Mean Corpuscular HGB Conc 32.5 g/dl (32-36); Mean Corpuscular Hemoglobin 27.3 pg (26-34); Mean Corpuscular Volume 84.0 fl (80-100); Nucleated Red Blood Cells Absolute Auto 0.000 K/mm3 (0.0-0.012); Nucleated Red Blood Cells Perc 0.0 % (0.0-0.2); Platelet Count Result 183 k/mm3 (150-375); Red Blood Count 4.50 M/mm3 (4.2-5.4); White Blood Count 12.4 K/mm3 (4.5-10.0)
--- OUTSIDE RECORDS SUMMARY | 2024-10-26 11:13 | XMS_ITS | Clinical Summary ---
Author Organization [facility] Address [address] [place] [address] Care Team Providers Care Top Stop Attacher Name Role Phone None, Provider MD Primary Care Provider Unavaila ble Allergies No known active allergies Medications Kupydbwb-Nxc-Hl-FA ( 1 + IRON OR) Active Active Problems Problem Noted Date Diagnosed Date Chronic pain of left knee 06/16/2018 Family History Medical History Relation Comments Heart Disease Mother Heart attack Relation Status Comments Mother Social History Tobacco Use Types Packs/Day Years Used Date Smoking Tobacco: Never Smokeless Tobacco: Never Tobacco Cessation:Counseling Given: No Comments:Never Smoked Alcohol Use Standard Drinks/Week Comments Yes 2 (1 standard drink = 0.6 oz pur e alcohol) Social events AUDIT-C Answer Date Recorded Frequency of Alcohol Consumption Monthly or less 03/01/2018 Average Number of Drinks 1 or 2 018 Frequency of Binge Drinking Never 02/20 PHQ-2 Answer Date Recorded Patient Health Questionnaire-2 Score 0 10/30/2023 Comments No Sex and Gender Information Value Date Recorded Sex Assigned at Not on file Legal Sex Female 8:09 AM CDT Gender Identity Not on file Sexual Orientation Not on file Last Filed Vital Signs Vital Sign Reading Time Taken Comments Blood Pressure 106/78 10/30/2023 10:04 AM CDT Pulse 81 10/30/2023 10:04 AM CDT Temperature 36.6 C (97.9 F) 10/30/2023 10:04 AM CDT Respiratory Rate 12 10/30/2023 10:04 AM CDT Oxygen Saturation 100% 10/30/2023 10:04 AM CDT Inhaled Oxygen Concentration - - Weight 89.8 kg (198 lb) 10/30/2023 10:04 AM CDT Height 165.1 cm (5' 5) 10/30/2023 10:04 AM CDT Body Mass Index 32.95 10/30/2023 10:04 AM CDT Plan of Treatment Upcoming Encounters Date Type Department Care Team (Late st Contact Info) Description 10/28/2024 1:20 PM CDT Office Visit [facility] [address] [place] [address] Sofia Ramsey, [facility] [address] [place] [address] Health Maintenance Due Date Last Done Comments Cervical Cancer Screening Pa p Smear (Age 21 to 29) Every 3 Years 1996 Cervical Cancer Screening 1996 Annual Physical 06/29/1999 Hepatitis C 2014 DTaP, Tdap and Td Vaccines ( 4 - Tdap) 06/29/2015 11/12/2001, 11/07/1997, 01/10/1997 Hepatitis B Vaccines (1 of 3 - 19+ 3-dose series) 06/29/2015 HPV Vaccines (1 - 3-dose SCD M series) 06/29/2023 COVID-19 Vaccine (1 - 2023-2 5 season) 2023 PHQ-2 (Physician [place]) 03/23/2024 10/30/2023 Meningococcal B Vaccine Aged Out No l onger eligible based on patient's age to complete this topic Meningococcal Vaccine Aged Out No vanda cain eligible based on patient's age to complete this topic Pneumococcal Vaccine: Pediatrics (0 to 5 Years) and At-Risk Patients (6 to 49 Years) Aged Out No longer eligible b ased on patient's age to complete this topic RSV Immunizations Under 20 Months Aged Out No longer eligible b ased on patient's age to complete this topic Insurance AETNA [facility] Care Teams Top Stop Attacher Relationship Specialty Start Date End Date None, Provider, PCP - General 11/12/19
--- OUTSIDE RECORDS SUMMARY | 2024-10-26 11:14 | XMS_ITS | Encounter Summary ---
Author Organization [facility] Address [address] [place] [address] Care Team Providers Care Dental Ceramist Assistant Name Role Phone Too Devries MD Primary Care Provider [phone] None, Provider Primary Care Provider Unavaila ble Encounter Details Date Type Department Care Team (Late Contact Info) Description 06/19/2016 Abstract [facility] CONVERSION [address] [place] [address] , Generic ConversionMD Social History Tobacco Use Types Packs/Day Years Used Date Smoking Tobacco: Never Assessed Comments Unknown Sex and Gender Information Value Date Recorded Sex Assigned at Not on file Legal Sex Female 8:09 AM CDT Gender Identity Not on file Sexual Orientation Not on file documented as of this encounter Plan of Treatment Upcoming Encounters Date Type Department Care Team (Late Contact Info) Description 10/28/2024 1:20 PM CDT Office Visit [facility] [address] [place] [address] Sofia Ramsey [facility] [address] [place] [address] documented as of this encounter Visit Diagnoses Not on filedocumented in this encounter Care Teams Dental Ceramist Assistant Relationship Specialty Start Date End Date Too Devries MD [address] [place] [address] PCP - General FAMILY PRACTICE 02/26/18 05/04/19 None, Provider, PCP - General 11/12/19 documented as of this encounter
[2024-10-26 11:17] VITALS: BP 119/75; PULSE 102
[2024-10-26 11:29] LABS: Amylase 92 U/L (30-110); Lipase 65 U/L (23-300); Uric Acid 3.8 mg/dL (2.5-7.5)
[2024-10-26 11:30] VITALS: BP 110/78; PULSE 96
[2024-10-26 11:30] LABS: Alanine Aminotransferase 17 U/L (6-35); Albumin Level 3.1 g/dL (3.5-5.1); Alkaline Phosphatase 152 U/L (38-126); Anion Gap 4 mmol/L (4-12); Aspartate Amino Transferase 24 U/L (14-36); Bilirubin,Total 0.3 mg/dL (0.2-1.3); Blood Urea Nitrogen 8 mg/dL (7-17); Calcium 8.6 mg/dL (8.4-10.2); Carbon Dioxide 20 mmol/L (22-30); Chloride 107 mmol/L (98-107); Estimated CRCL calculation 142 ml/min; Estimated Glomerular Filt Rate > 60; Glucose 92 mg/dL (65-110); Potassium 4.0 mmol/L (3.4-5.0); Sodium 131 mmol/L (137-145); Total Protein 6.1 g/dL (6.3-8.2)
[2024-10-26 11:45] VITALS: BP 109/78; PULSE 111
--- NOTE | 2024-10-27 10:54 | PM.OBTRLD ---
OB - Triage/Final Diagnosis Visit Information Date of evaluation: 10/26/24 Reason for evaluation: other (left abd pain) Comments/Additional reasons for admission: I have assessed the risk for this patient, Audrey Flanagan, and determined that she would benefit from observation care. Evaluation Laboratory results: Laboratory Tests 10/26/24 10:53 WBC 12.4 H RBC 4.50 Hgb 12.3 Hct 37.8 MCV 84.0 MCH 27.3 MCHC 32.5 RDW 13.3 Plt Count 183 MPV 12.4 H Immature Gran % (Auto) 1.5 H Neut % (Auto) 75.3 H Lymph % (Auto) 15.9 L [place] % (Auto) 6.5 Eos % (Auto) 0.6 Baso % (Auto) 0.2 Lymph # (Auto) 1.97 [place] # (Auto) 0.8 H Eos # (Auto) 0.1 Baso # (Auto) 0.0 Abs Immat Gran (auto) 0.19 H Absolute Neuts (auto) 9.3 H Absolute Nucleated RBC 0.000 Nucleated RBC % 0.0 Sodium 131 L Potassium 4.0 Chloride 107 Carbon Dioxide 20 L Anion Gap 4 BUN 8 Creatinine 0.57 L Estim Creat Clear Calc 142 Estimated GFR > 60 Glucose 92 Uric Acid 3.8 Calcium 8.6 Total Bilirubin 0.3 AST 24 ALT 17 Alkaline Phosphatase 152 H Total Protein 6.1 L Albumin 3.1 L Amylase 92 Lipase 65 Vital signs: Vital Signs - 24 hr 10/26/24 10:59 10/26/24 11:17 10/26/24 11:30 Pulse Rate 102 H 96 Blood Pressure 119/75 110/78 Oxygen Delivery Room Air 10/26/24 11:45 Pulse Rate 111 H Blood Pressure 109/78 Oxygen Delivery
== END 2024-10-26 12:15 | disposition home or self-care (01) ==
PROVIDERS: Advanced Practice Midwife; Admitting Provider Obstetrics & Gynecology; Visit Provider Obstetrics & Gynecology
DX: O26.893 Other specified pregnancy related conditions, third trimester (principal); R10.9 Unspecified abdominal pain; Z3A.34 34 weeks gestation of pregnancy
CPT/HCPCS: 36415; 80053; 82150; 83690; 84550; 85025; A9270; G0378; G0379

== ENCOUNTER 2024-11-11 09:32 | Outpatient (CLI) | payer OTHER, SELFPAY ==
[2024-11-11 09:57] LABS: Hematocrit 38.5 % (37.0-47.0); Hemoglobin 12.4 g/dL (12.0-15.0); Immature Granulocyte Percent A 1.0 % (0-0.5); Lymphocytes Absolute Auto 1.74 K/mm3 (0.9-3.2); Mean Corpuscular HGB Conc 32.2 g/dl (32-36); Mean Corpuscular Hemoglobin 26.9 pg (26-34); Mean Corpuscular Volume 83.5 fl (80-100); Nucleated Red Blood Cells Absolute Auto 0.000 K/mm3 (0.0-0.012); Nucleated Red Blood Cells Perc 0.0 % (0.0-0.2); Platelet Count Result 171 k/mm3 (150-375); Red Blood Count 4.61 M/mm3 (4.2-5.4); White Blood Count 13.1 K/mm3 (4.5-10.0)
[2024-11-11 10:00] VITALS: BP 136/87; PULSE 104
[2024-11-11 10:16] VITALS: BP 129/79; PULSE 89
[2024-11-11 10:18] LABS: Alanine Aminotransferase 18 U/L (6-35); Albumin Level 3.1 g/dL (3.5-5.1); Alkaline Phosphatase 161 U/L (38-126); Anion Gap 5 mmol/L (4-12); Aspartate Amino Transferase 24 U/L (14-36); Bilirubin,Total 0.4 mg/dL (0.2-1.3); Blood Urea Nitrogen 8 mg/dL (7-17); Calcium 9.0 mg/dL (8.4-10.2); Carbon Dioxide 21 mmol/L (22-30); Chloride 107 mmol/L (98-107); Estimated Glomerular Filt Rate > 60; Glucose 123 mg/dL (65-110); Potassium 3.9 mmol/L (3.4-5.0); Sodium 133 mmol/L (137-145); Total Protein 6.3 g/dL (6.3-8.2); Uric Acid 4.5 mg/dL (2.5-7.5)
[2024-11-11 10:27] LABS: Add Urine Microscopic? YES; Appearance Urine Clear (Clear); Glucose Urine UA Trace mg/dL (Negative); Leukocyte Esterase Ur 3+ LEU/UL (Negative); Nitrate Urine Negative (Negative); Non Pathogenic Casts 0-2; Specific Grav Ur 1.007 (1.001-1.035)
[2024-11-11 10:31] VITALS: BP 121/79; PULSE 93
[2024-11-11 10:45] VITALS: BP 122/82; PULSE 99
[2024-11-11 11:00] VITALS: BP 131/80; PULSE 95
[2024-11-11 11:30] LABS: Total Protein Urine Random 14 mg/dL; Ur Ttl Prot Creatinine Ratio 0.42 mg/mg (0-0.20)
== END 2024-11-11 11:30 | disposition home or self-care (01) ==
LOC: ANHOBOP 09:36 → ANHLDR 18:42
PROVIDERS: PCP Nurse Practitioner Family; Visit Provider Obstetrics & Gynecology
DX: O13.9 Gestational [pregnancy-induced] hypertension without significant proteinuria, unspecified trimester (principal); Z3A.00 Weeks of gestation of pregnancy not specified
CPT/HCPCS: 36415; 59025; 80053; 81001; 82570; 84156; 84550; 85025; 87086; 99199

== ENCOUNTER 2024-11-16 12:38 | Outpatient (CLI) | payer OTHER, SELFPAY ==
[2024-11-16] VITALS (8 sets, daily range): BP systolic 114–129; BP diastolic 77–99; PULSE 78–122; TEMP 36.4; BMI 34.4
--- OUTSIDE RECORDS SUMMARY | 2024-11-16 12:50 | XMS_ITS | Clinical Summary ---
Author Organization [facility] Address [facility] [place] [address] Care Team Providers Care Mechanic Sound Technician Name Role Phone Sofia Ramsey SPINNER [employer]INU[employer] Primary Care Provider [phone] Allergies No known active allergies Medications Rkzicytd-Zgy-Zg -FA ( 1 + IRON OR) Active famotidine (PEPCID) 20 MG tablet Take 0.5 tablets (10 mg total) by mouth 2 (two) times daily. Active ciclopirox (PENLAC) 8 % solutionIndicat ions:Onychomyco sis Apply topically nightly at bedtime. Apply over nail and surrounding skin. Apply daily over previous coat. After seven (7) days, may remove with alcohol and continue cycle. 6.6 mL 1 5 01/27/20 25 Active Active Problems Problem Noted Date Diagnosed Date History of pre-eclampsia 10/28/2024 Overview (10/28/2024): delivered at 37.3 weeks bASA ? abruption at delivery ([facility]) 04/09/2023 Estimated Date of Delivery Comme nts Yes 12/07/2024 Resolved Problems Problem Noted Date Diagnosed Date Resolved Date Fracture 06/21/2021 10/28/2024 Overview (10/28/2024): Fractured left foot Chronic pain of left knee 06/16/2018 Encounters Date Type Department Care Team Description 10/28/2024 1:20 PM CDT Office Visit [address] [place] [address] Sofia Ramsey FNP Meet and Greet Provider (Possible nail fungus left big toe) 10/28/2024 Travel from Last 3 Months Immunizations Immunization Administration Dates Next Due Dtap 11/12/2001,11/07/1997,01/10/1997 Dtp/Hib 1996,1996 Hepatitis B Pediatric 07/06/1997,1996,06/21 IPV/OPV 11/12/2001 Influenza (Generic) 01/25/2008 MMR 11/12/2001,07/06/1997 Opv 01/10/1997,1996,1996 Tdap (Boostrix) 12/18/2011 Varicella (Generic) 07/04/1998 Family History Medical History Relation Comments Hyperlipidemia Father Hypertension Father Breast Cancer Maternal Grandmother Heart Disease Mother Heart attack Hyperlipidemia Mother Hypertension Mother Kidney failure Paternal Grandmother Relation Status Comments Father Maternal Grandfather Maternal Grandmother Mother Paternal Grandfather Paternal Grandmother Social History Tobacco Use Types Packs/Day Years Used Date Smoking Tobacco: Never Smokeless Tobacco: Never Tobacco Cessation:Counseling Given: No Comments:Never Smoked Alcohol Use Standard Drinks/Week Comments Not Currently 2 (1 standard drink = 0.6 oz pur e alcohol) Social events AUDIT-C Answer Date Recorded Frequency of Alcohol Consumption Monthly or less 03/01/2018 Average Number of Drinks 1 or 2 018 Frequency of Binge Drinking Never 02/20 PHQ-2 Answer Date Recorded Patient Health Questionnaire-2 Score 0 10/28/2024 Estimated Date of Delivery Comme nts Yes 12/07/2024 Sex and Gender Information Value Date Recorded Sex Assigned at Female 10/28/2024 1:23 PM CDT Legal Sex Female 8:09 AM CDT Gender Identity Female 10/28/2024 1:23 PM CDT Sexual Orientation Not on file Last Filed Vital Signs Vital Sign Reading Time Taken Comments Blood Pressure 99/71 10/28/2024 1:16 PM CDT Pulse 94 10/28/2024 1:16 PM CDT Temperature 36.7 C (98 F) 10/28/2024 1:16 PM CDT Respiratory Rate 16 10/28/2024 1:16 PM CDT Oxygen Saturation 99% 10/28/2024 1:16 PM CDT Inhaled Oxygen Concentration - - Weight 96.6 kg (213 lb) 10/28/2024 1:16 PM CDT Height 165.1 cm (5' 5) 10/28/2024 1:16 PM CDT Body Mass Index 35.45 10/28/2024 1:16 PM CDT Plan of Treatment Health Maintenance Due Date Last Done Comments Cervical Cancer Screening Pap Smear (Age 21 to 29) Every 3 Years 1996 Annual Physical 06/29/1999 Hepatitis C 2014 DTaP, Tdap and Td Vaccines (5 - Td or Tdap) 12/17/2021 12/18/2011, 11/12/2001, 11/07/1997, Additional history exists Cervical Cancer Screening 10/28/2025 Po stponed from 1996 (Going to Outside Clinic) HPV Vaccines (1 - 3-dose SCDM series) 11/28/2025 Postponed from 06/29/2023 (Patient Refused) COVID-19 Vaccine ( - season) 2055 Postponed from 11/22/2023 (Patient Refused) Hepatitis B Vaccines Completed 07/06/1997, 1996, 1996 PHQ-2 (Physician [place]) Completed 10/28/2024 Meningococcal B Vaccine Aged Out No l onger eligible based on patient's age to complete this topic Meningococcal Vaccine Aged Out No vanda cain eligible based on patient's age to complete this topic Pneumococcal Vaccine: Pediatrics (0 to 5 Years) and At-Risk Patients (6 to 49 Years) Aged Out No longer eligible based on patient's age to complete this topic RSV Immunization or 60+ Years (No Doses Required) Completed RSV Immunizations Under 20 Months Aged Out No longer eligible based on patient's age to complete this topic Insurance [facility] AETNA Care Teams Mechanic Sound Technician Relationship Specialty Start Date End Date Sofia Ramsey FNP [address] [place] [address] [place] [address] PCP - General Nurse Practitioner Family 10/28/24
--- OUTSIDE RECORDS SUMMARY | 2024-11-16 12:50 | XMS_ITS | Encounter Summary ---
Author Organization [facility] Address [facility] [place] [address] Care Team Providers Care Verifying Machine Operator Name Role Phone Too Devries MD Primary Care Provider [phone] None, Provider Primary Care Provider Sofia Bhatt Primary Care Provider [phone] Encounter Details Date Type Department Care Team (Late st Contact Info) Description 06/19/2016 Abstract [facility] CONVERSION [address] [place] [address] , Generic Conversion, Social History Tobacco Use Types Packs/Day Years Used Date Smoking Tobacco: Never Assessed Comments Unknown Sex and Gender Information Value Date Recorded Sex Assigned at Female 10/28/2024 1:23 PM CDT Legal Sex Female 8:09 AM CDT Gender Identity Female 10/28/2024 1:23 PM CDT Sexual Orientation Not on file documented as of this encounter Plan of Treatment Not on file documented as of this encounter Visit Diagnoses Not on filedocumented in this encounter Care Teams Verifying Machine Operator Relationship Specialty Start Date End Date Too Devries MD [address] [place] [address] PCP - General FAMILY PRACTICE 02/26/18 05/04/19 None, ProviderMD PCP - General 11/12/19 10/27/24 Sofia Ramsey FNP [address] [place] [address] [place] [address] PCP - General Nurse Practitioner Family 10/28/24 documented as of this encounter
[2024-11-16 13:34] LABS: Hematocrit 37.6 % (37.0-47.0); Hemoglobin 12.3 g/dL (12.0-15.0); Immature Granulocyte Percent A 1.5 % (0-0.5); Lymphocytes Absolute Auto 1.80 K/mm3 (0.9-3.2); Mean Corpuscular HGB Conc 32.7 g/dl (32-36); Mean Corpuscular Hemoglobin 26.7 pg (26-34); Mean Corpuscular Volume 81.7 fl (80-100); Nucleated Red Blood Cells Absolute Auto 0.000 K/mm3 (0.0-0.012); Nucleated Red Blood Cells Perc 0.0 % (0.0-0.2); Platelet Count Result 187 k/mm3 (150-375); Red Blood Count 4.60 M/mm3 (4.2-5.4); White Blood Count 13.0 K/mm3 (4.5-10.0)
[2024-11-16 13:45] LABS: Total Protein Urine Random 12 mg/dL; Ur Ttl Prot Creatinine Ratio 0.57 mg/mg (0-0.20)
[2024-11-16 13:53] LABS: Add Urine Microscopic? YES; Appearance Urine Cloudy (Clear); Glucose Urine UA 1+ mg/dL (Negative); Leukocyte Esterase Ur 2+ LEU/UL (Negative); Nitrate Urine Negative (Negative); Non Pathogenic Casts 0-2; Specific Grav Ur 1.006 (1.001-1.035)
[2024-11-16 13:55] LABS: Alanine Aminotransferase 21 U/L (6-35); Albumin Level 3.2 g/dL (3.5-5.1); Alkaline Phosphatase 197 U/L (38-126); Anion Gap 6 mmol/L (4-12); Aspartate Amino Transferase 28 U/L (14-36); Bilirubin,Total 0.2 mg/dL (0.2-1.3); Blood Urea Nitrogen 8 mg/dL (7-17); Calcium 8.7 mg/dL (8.4-10.2); Carbon Dioxide 18 mmol/L (22-30); Chloride 108 mmol/L (98-107); Estimated CRCL calculation 146 ml/min; Estimated Glomerular Filt Rate > 60; Glucose 124 mg/dL (65-110); Potassium 3.9 mmol/L (3.4-5.0); Sodium 132 mmol/L (137-145); Total Protein 6.5 g/dL (6.3-8.2); Uric Acid 4.0 mg/dL (2.5-7.5)
--- NOTE | 2024-11-16 14:07 | PC.NURSE ---
Dago Mckenna CNM here on unit review BP and lab results. Reactive NST. Orders for discharge home received.
== END 2024-11-16 14:12 | disposition home or self-care (01) ==
LOC: ANHOBOP 12:44 → ANHOBPP 12:46
PROVIDERS: PCP Nurse Practitioner Family; Visit Provider Advanced Practice Midwife
DX: O13.9 Gestational [pregnancy-induced] hypertension without significant proteinuria, unspecified trimester (principal); Z3A.00 Weeks of gestation of pregnancy not specified
CPT/HCPCS: 36415; 59025; 80053; 81001; 82570; 84156; 84550; 85025; 87086; 99199

== ENCOUNTER 2024-11-25 08:49 | Inpatient (IN) | payer OTHER, SELFPAY ==
[2024-11-25] VITALS (166 sets, daily range): BP systolic 86–164; BP diastolic 68–127; PULSE 70–171; RESP 14; TEMP 36.2–36.9; O2SAT 90–100; BMI 36.6
--- NOTE | 2024-11-25 09:28 | LDADM ---
This patient, Audrey Flanagan, was admitted to Labor/Delivery/Recovery 104 on 11/25/24 at 08:49. Plans for labor, pain management and were discussed with patient. Patient/family oriented to hospital policies and general routines including ID bracelet, bed and alarms, visiting hours, pain management, procedures, bathroom and other care routines, personal items, smoking policy, room service/diet and guest tray routines, infant security routines, and visiting hours. Patient/Family are encouraged to report perceived risks to care and to ask questions if they do not understand what they are told or what they should do. See OBIX for further documentation.
[2024-11-25 09:43] LABS: Hematocrit 37.6 % (37.0-47.0); Hemoglobin 12.3 g/dL (12.0-15.0); Immature Granulocyte Percent A 1.0 % (0-0.5); Lymphocytes Absolute Auto 1.67 K/mm3 (0.9-3.2); Mean Corpuscular HGB Conc 32.7 g/dl (32-36); Mean Corpuscular Hemoglobin 26.6 pg (26-34); Mean Corpuscular Volume 81.4 fl (80-100); Nucleated Red Blood Cells Absolute Auto 0.000 K/mm3 (0.0-0.012); Nucleated Red Blood Cells Perc 0.0 % (0.0-0.2); Platelet Count Result 166 k/mm3 (150-375); Red Blood Count 4.62 M/mm3 (4.2-5.4); White Blood Count 10.3 K/mm3 (4.5-10.0)
[2024-11-25] MEDS: OXYTOCIN 30 UNITS/NS 500 ML 30 UNITS/500 ML BAG IV CONT (09:56)
[2024-11-25] MEDS: LACTATED RINGERS 1,000 ML 125 ML IV CONT ×2 (09:57→21:09)
[2024-11-25] MEDS: ACETAMINOPHEN 500 MG TABLET 1000 MG PO ×2 (09:59→17:45)
[2024-11-25 10:13] LABS: Alanine Aminotransferase 17 U/L (6-35); Albumin Level 3.0 g/dL (3.5-5.1); Alkaline Phosphatase 204 U/L (38-126); Anion Gap 6 mmol/L (4-12); Aspartate Amino Transferase 28 U/L (14-36); Bilirubin,Total 0.2 mg/dL (0.2-1.3); Blood Urea Nitrogen 5 mg/dL (7-17); Calcium 8.7 mg/dL (8.4-10.2); Carbon Dioxide 19 mmol/L (22-30); Chloride 109 mmol/L (98-107); Estimated CRCL calculation 131 ml/min; Estimated Glomerular Filt Rate > 60; Glucose 102 mg/dL (65-110); Potassium 3.8 mmol/L (3.4-5.0); Sodium 134 mmol/L (137-145); Total Protein 6.1 g/dL (6.3-8.2); Uric Acid 5.0 mg/dL (2.5-7.5)
[2024-11-25 10:41] LABS: Syphilis IgG/IgM Antibody Non-Reactive (Nonreactive)
--- NOTE | 2024-11-25 10:50 | WPDOBADMIT ---
Obstetrics - Admit Note Admission Note: record reviewed. No pertinent additions to the history and/or any subsequent changes in the physical findings that are not consistent with the expected course of the were found. Additions to the history and/or subsequent changes in the physical findings follow. Admit for preeclampsia, SVE /-2, AROM IUPC placed
--- NOTE | 2024-11-25 14:00 | WPDANESEPPF ---
Anes - Initial Pre Proc Eval Procedure: labor epidural Date/Time: 11/25/24 14:00 Surgeon: Alex Griffin MD Pre Op Diagnosis: labor pain Pre Op Diagnosis: iol Patient Data Age: 29 Gender: F Height: 1.65 m Weight: 100 kg Last Vital Signs Temp 36.6 C 11/25/24 13:00 Pulse 92 11/25/24 13:58 BP 133/93 H 11/25/24 13:58 Pulse Ox 98 11/25/24 13:56 O2 Del Method Room Air 11/25/24 09:27 Allergies Allergy/AdvReac Type Severity Reaction Status Date / Time No Known Allergies Allergy Verified 11/25/24 10:12 Home Medications ?Medication ?Instructions ?Recorded ?Confirmed ?Type diphenhydramine HCl 50 mg capsule 50 mg PO HS 10/02/23 11/25/24 History (Unisom SleepGels) prenat.vits,ham,lvn-bqor-pklug 1 tablet PO DAILY 10/02/23 11/25/24 History aspirin 81 mg capsule 81 mg PO DAILY 11/11/24 11/25/24 History cyclobenzaprine 5 mg tablet 5 mg PO .TID prn 11/11/24 11/25/24 History pantoprazole 40 mg tablet,delayed 40 mg PO DAILY 11/11/24 11/25/24 History release Laboratory Tests 11/25/24 09:24 WBC 10.3 H K/mm3 (4.5-10.0) RBC 4.62 M/mm3 (4.2-5.4) Hgb 12.3 g/dL (12.0-15.0) Hct 37.6 % (37.0-47.0) MCV 81.4 fl (80-100) MCH 26.6 pg (26-34) MCHC 32.7 g/dl (32-36) RDW 13.8 % (11.5-14.5) Plt Count 166 k/mm3 (150-375) MPV 12.4 H fl (7.4-10.4) Immature Gran % (Auto) 1.0 H % (0-0.5) Neut % (Auto) 76.3 H % (45.5-73.1) Lymph % (Auto) 16.2 L % (18.3-44.2) [place] % (Auto) 5.6 % (2.6-8.5) Eos % (Auto) 0.7 % (0-4.4) Baso % (Auto) 0.2 % (0.2-1.2) Lymph # (Auto) 1.67 K/mm3 (0.9-3.2) [place] # (Auto) 0.6 K/mm3 (0.1-0.6) Eos # (Auto) 0.1 K/mm3 (0-0.3) Baso # (Auto) 0.0 K/mm3 (0.0-0.1) Abs Immat Gran (auto) 0.10 H K/mm3 (0.00-0.031) Absolute Neuts (auto) 7.9 H K/mm3 (1.3-6.7) Absolute Nucleated RBC 0.000 K/mm3 (0.0-0.012) Nucleated RBC % 0.0 % (0.0-0.2) Sodium 134 L mmol/L (137-145) Potassium 3.8 mmol/L (3.4-5.0) Chloride 109 H mmol/L (98-107) Carbon Dioxide 19 L mmol/L (22-30) Anion Gap 6 mmol/L (4-12) BUN 5 L mg/dL (7-17) Creatinine 0.64 L mg/dL (0.7-1.0) Estim Creat Clear Calc 131 ml/min Estimated GFR > 60 (59 - ) Glucose 102 mg/dL (65-110) Uric Acid 5.0 mg/dL (2.5-7.5) Calcium 8.7 mg/dL (8.4-10.2) Total Bilirubin 0.2 mg/dL (0.2-1.3) AST 28 U/L (14-36) ALT 17 U/L (6-35) Alkaline Phosphatase 204 H U/L (38-126) Total Protein 6.1 L g/dL (6.3-8.2) Albumin 3.0 L g/dL (3.5-5.1) Syphilis IgG/IgM Ab Non-reactive (Nonreactive) Blood Type O Positive Antibody Screen Negative Patient hx anesthesia problems: none Family hx anesthesia problems: none Results Review: All pre-operative results and documents have been reviewed as part of the pre-operative evaluation. [facility] Past Medical History Medical History (Updated 11/25/24 @ 09:39 by Jillian Mckenna CNM) Preeclampsia Family History Family History Mother Myocardial infarction Grandparent Breast cancer Social History Social History Smoking status: Never smoker Second hand tobacco smoke exposure: No Substance use: never Do You Feel Safe in your Home?: Yes Lack of Transportation: No Lack of Food: Never True Current Housing: I Have Housing Concerned About Future Housing: No Difficulty Paying Gas/Electric Bills: No Difficulty Paying for Meds: No Currently Unemployed: No Education: Bachelor's Degree Difficulty w/ Childcare or Family Care: No Spiritual care concerns: No Anes - Eval Final PreProcedure Day of Procedure 11/25/24 14:00 Patient weight: obese ASA classification: III Anesthetic plan: proceed Anesthesia type and monitoring: regional epidural and standard monitoring Results Review: All pre-operative results and documents have been reviewed as part of the pre-operative evaluation. Informed Consent: The patient's anesthetic plan and its attendant risks and benefits were discussed with the patient/family/POA. Questions were solicited and answers provided to the satisfaction of the patient/family/POA.
[2024-11-25] MEDS: METOCLOPRAMIDE HCL INJ 10 MG/2 ML VIAL IV PUSH (18:40)
--- NOTE | 2024-11-25 22:26 | PM.OBPRVD ---
OB - Vaginal Delivery Note Procedure Delivery date: 11/25/24 Events: Preeclampsia w/o severe features Induction method: AROM and Per Pitocin Protocol Delivery monitor: External FHT and Internal Uterine Route of delivery: Laceration Description: None Specimen: No Quantitative Blood Loss (ml): 75 Anesthesia type: Epidural Complications: None [place] Baby Date of : 11/25/24 Time of : 22:15 Gestational Age by Date: 39 gender: Female presentation: vertex position: Left Occiput Anterior Placenta delivery description: Expressed Cord Vessel Description: 3 Vessels score one minute: 8 score five minutes: 9
[2024-11-25] MEDS: OXYTOCIN 30 UNITS/NS 500 ML 30 UNITS/500 ML BAG 125 UNITS IV CONT (22:46)
[2024-11-25] MEDS: ONDANSETRON INJ 4 MG/2 ML VIAL IV PUSH (22:47)
[2024-11-26] VITALS (9 sets, daily range): BP systolic 122–141; BP diastolic 75–98; PULSE 91–129; RESP 16–19; TEMP 36.2–36.7; O2SAT 98–100
[2024-11-26] MEDS: ACETAMINOPHEN 325 MG TABLET 650 MG PO ×3 (01:15→19:13)
--- NOTE | 2024-11-26 01:28 | OBPPTRN ---
Patient transferred to post room #281 via wheelchair, family, and nurse Janice. Support person present. Oriented to unit, room, information board, rooming in, admission packet and security measures. Patient verbalizes understanding.
[2024-11-26] MEDS: IBUPROFEN 600 MG TABLET PO ×3 (01:30→19:13)
[2024-11-26 05:13] LABS: Hematocrit 34.7 % (37.0-47.0); Hemoglobin 11.3 g/dL (12.0-15.0); Immature Granulocyte Percent A 0.9 % (0-0.5); Lymphocytes Absolute Auto 1.75 K/mm3 (0.9-3.2); Mean Corpuscular HGB Conc 32.6 g/dl (32-36); Mean Corpuscular Hemoglobin 26.8 pg (26-34); Mean Corpuscular Volume 82.4 fl (80-100); Nucleated Red Blood Cells Absolute Auto 0.000 K/mm3 (0.0-0.012); Nucleated Red Blood Cells Perc 0.0 % (0.0-0.2); Platelet Count Result 160 k/mm3 (150-375); Red Blood Count 4.21 M/mm3 (4.2-5.4); White Blood Count 23.4 K/mm3 (4.5-10.0)
[2024-11-26 05:35] LABS: Alanine Aminotransferase 15 U/L (6-35); Albumin Level 2.5 g/dL (3.5-5.1); Alkaline Phosphatase 186 U/L (38-126); Anion Gap 1 mmol/L (4-12); Aspartate Amino Transferase 32 U/L (14-36); Bilirubin,Total 0.2 mg/dL (0.2-1.3); Blood Urea Nitrogen 7 mg/dL (7-17); Calcium 8.2 mg/dL (8.4-10.2); Carbon Dioxide 21 mmol/L (22-30); Chloride 110 mmol/L (98-107); Estimated CRCL calculation 116 ml/min; Estimated Glomerular Filt Rate > 60; Glucose 102 mg/dL (65-110); Potassium 4.1 mmol/L (3.4-5.0); Sodium 132 mmol/L (137-145); Total Protein 5.2 g/dL (6.3-8.2); Uric Acid 5.2 mg/dL (2.5-7.5)
[2024-11-26] MEDS: MULTIVIT/MIN/PREN/FOL AC/IRON TABLET 1 TAB PO (07:37)
[2024-11-26] MEDS: WITCH HAZEL 40 PADS 1 PAD TOPICAL (07:39)
[2024-11-26] MEDS: BENZOCAINE 20% AER SPR (*SP) 56 GM CAN 1 SPRAY TOPICAL (07:39)
[2024-11-26 08:00] LABS: Total Protein Urine Random 72 mg/dL; Ur Ttl Prot Creatinine Ratio 1.99 mg/mg (0-0.20)
--- NOTE | 2024-11-26 08:30 | PC.NURSE ---
0830: Patient preparing to feed baby. Infant was in the nursery to see the deal architect and had a large spit up. Mom is holding baby skin to skin and we attempted to wake her by removing the blanket, sitting her up, and stimulating her. Baby stirred briefly and when placed at breast, she did not root or open her mouth to latch. We tried for a few minutes to stimulate baby to wake up but were unsuccessful. Mom is encouraged to hold baby skin to skin and try again within an hour. This may also give baby some time to recover from her large spit up. Primary RN updated. 0945: Checked in with mom to see if was able to feed. Mom had tried to wake her but was unable. We moved baby to the crib and changed a dirty diaper. Baby stirred and began to root. We placed her in cross cradle on the left breast. Mom is comfortable with holding her breast and baby's head. Baby gave a wide gape and mom brought her to the nipple independently. Baby latched and suckled vigorously at first, then needed some stimulation to keep her going. Patient denies pain with latch. Mom is educated that feedings in the first 24 hours of life may be sleepy and she may need to continue to stimulate baby through the whole feeding. Mom is encouraged to count the minutes she is able to nurse for and then go 2-3 hours from then to initiate the next feeding. Patient will call for assistance as needed. Primary RN updated.
--- NOTE | 2024-11-26 12:20 | PM.OBPNVD ---
OB - PN: Subj Subjective Date/time seen: 11/26/24 12:20 Patient comments: no complaints, pain well controlled, incisional pain, tolerating diet and flatus present OB - PN: Obj Data Labs 11/26/24 04:40 11/26/24 04:40 Labs: Laboratory Results - last 24 hr 11/26/24 04:40 WBC 23.4 H RBC 4.21 Hgb 11.3 L Hct 34.7 L MCV 82.4 MCH 26.8 MCHC 32.6 RDW 13.5 Plt Count 160 MPV 12.5 H Immature Gran % (Auto) 0.9 H Neut % (Auto) 86.1 H Lymph % (Auto) 7.5 L [place] % (Auto) 5.2 Eos % (Auto) 0.1 Baso % (Auto) 0.2 Lymph # (Auto) 1.75 [place] # (Auto) 1.2 H Eos # (Auto) 0.0 Baso # (Auto) 0.0 Abs Immat Gran (auto) 0.20 H Absolute Neuts (auto) 20.2 H Absolute Nucleated RBC 0.000 Nucleated RBC % 0.0 Sodium 132 L Potassium 4.1 Chloride 110 H Carbon Dioxide 21 L Anion Gap 1 L BUN 7 Creatinine 0.73 Estim Creat Clear Calc 116 Estimated GFR > 60 Glucose 102 Uric Acid 5.2 Calcium 8.2 L Total Bilirubin 0.2 AST 32 ALT 15 Alkaline Phosphatase 186 H Total Protein 5.2 L Albumin 2.5 L U Random Total Protein 72 Urine Creatinine 36.2 Protein/Creat Ratio 2 1.99 H OB - PN A/P Plan day: 1 Plan: routine care Comments: No problems, routine care Time Spent With Patient Time: Total time spent is greater than 50% in coordination of care (as documented) at patient's floor/unit and/or counseling patient: Exam Const: General: comfortable, no acute distress and alert Resp: Effort & Inspection: normal respiratory effort Auscultation: no crackles, no rales and no rhonchi Cardio: Rate: regular rate Heart sounds: no click, no murmurs and no rubs GI: Inspection: non-distended GI Palp: No Tenderness to palpation present (GI) Auscultation: normal bowel sounds Other: Incision - CDI Extrem: General: normal to inspection, no pedal edema and no calf tenderness
--- NOTE | 2024-11-26 14:32 | WPDANLDPN2 ---
Anes-Prog Note L&D Date/Time: 11/26/24 14:32 Comfortable throughout: labor and delivery Neuraxial method: epidural Epidural/Spinal procedure site: clean & non-tender Neuro status: Neuro function grossly intact. Cardiovascular status: normal Respiratory status: normal Airway patency: baseline Mental status: baseline Post-Op hydration status: normal Vital Signs: Last Vital Signs Temp 97.2 F L 11/26/24 12:00 Pulse 94 11/26/24 12:00 Resp 16 11/26/24 12:00 BP 127/97 H 11/26/24 12:00 Pulse Ox 100 11/26/24 12:00 O2 Del Method Room Air 11/25/24 09:27 Pain score (VAS): 0 I/O: Intake & Output 11/25/24 11/26/24 11/26/24 23:59 07:59 15:59 Intake Total 1000 1440 Output Total 235 1680 Balance 765 -240 Post-procedural complaints: none Patient feedback: Patient satisfied with anesthetic care.
[2024-11-27 03:10] VITALS: BP 126/91; PULSE 98; RESP 16; TEMP 36.1; O2SAT 100
[2024-11-27] MEDS: IBUPROFEN 600 MG TABLET PO (05:21)
[2024-11-27] MEDS: ACETAMINOPHEN 325 MG TABLET 650 MG PO (05:21)
[2024-11-27] MEDS: MULTIVIT/MIN/PREN/FOL AC/IRON TABLET 1 TAB PO (08:07)
[2024-11-27 08:15] VITALS: BP 131/88; PULSE 98; RESP 16; TEMP 36.2; O2SAT 100
--- NOTE | 2024-11-27 08:18 | PC.NURSE ---
Patient viewed the discharge video Mother & Baby Care, The First Two Weeks. Patient was given the opportunity and encouraged to ask questions. Patient verbalized understanding of information shared and has been given the mother/baby guide for home reference.
--- NOTE | 2024-11-27 10:05 | P.PNOB_ITS ---
OB - PN: Subj Subjective Date/time seen: 11/27/24 10:05 Patient comments: no complaints, pain well controlled and tolerating diet OB - PN: Obj Data Labs 11/26/24 04:40 11/26/24 04:40 OB - PN A/P Plan day: 2 Plan: routine care and discharge home Time Spent With Patient Time: Total time spent is greater than 50% in coordination of care (as documented) at patient's floor/unit and/or counseling patient: Exam 2 Const: General: comfortable and no acute distress Resp: Effort & Inspection: normal respiratory effort Auscultation: no rales, no rhonchi and no wheezes Cardio: Rate: regular rate Heart sounds: no click, no murmurs and no rubs GI: GI Palp: Yes Soft to palpation and No Tenderness to palpation present (GI) Auscultation: normal bowel sounds Extrem: General: normal to inspection, no pedal edema and no calf tenderness
--- NOTE | 2024-11-27 10:06 | PM.OBDSVD ---
DS: Admitting Diagnosis Discharge Date 11/27/24 Admitting Diagnosis term DS: Discharge Diagnosis Discharge Diagnosis (1) Vaginal delivery: Code(s): O80 - Encounter for full-term uncomplicated delivery Status: Acute OB - DS: Summary OB Procedures : None OB Procedures Intrapartum: Spontaneous Vag Delivery OB Procedures: : None Peripartum Data Laceration Description: None Time Spent with Patient Time attestation: Total time spent providing and/or coordinating discharge services: Discharge Plan Discharge Consulting providers: Jillian Mckenna Discharging Clinician: Alex Griffin Patient Disposition: Home Activity: pelvic rest Diet: regular Patient Instructions: Antibiotic Form Patient Language: Georgian Stand Alone Forms: General Discharge Information Follow-up/Referrals: Alex Griffin MD [Physician, WORKERS' COMPENSATION CLAIMS SUPERVISOR] Discharge Medications: Continued diphenhydramine HCl [Unisom SleepGels] 50 mg Capsule 50 mg PO HS prenat.vits,ham,fof-qted-ssrkz Tablet 1 tablet PO DAILY pantoprazole 40 mg tablet,delayed release (DR/EC) 40 mg PO DAILY aspirin 81 mg capsule 81 mg PO DAILY cyclobenzaprine 5 mg tablet 5 mg PO .TID prn Date of admission: 11/25/24 08:49 Primary Care Provider: JacquiSofia Admitting Provider: Alex Griffin Attending physician on admission: Alex Griffin Condition: Stable
[2024-11-29 10:06] VITALS: BP 144/107; PULSE 103; RESP 18; TEMP 36.8; O2SAT 100
== END 2024-11-27 10:45 | disposition home or self-care (01) | DRG 807 ==
LOC: ANHLDR 08:57 → ANHOB2 11-26 01:05
PROVIDERS: Advanced Practice Midwife; Admitting Provider Obstetrics & Gynecology; PCP Nurse Practitioner Family; Visit Provider Obstetrics & Gynecology
DX: O14.04 Mild to moderate pre-eclampsia, complicating childbirth (principal); Z37.0 Single live birth; O13.4 Gestational [pregnancy-induced] hypertension without significant proteinuria, complicating childbirth; Z3A.38 38 weeks gestation of pregnancy
CPT/HCPCS: 36415; 80053; 82570; 84156; 84550; 85025; 86593; 86850; 86900; 86901; A9270; J1200; J2405; J2590; J2765; J2795; J7120

== ENCOUNTER 2024-11-29 10:15 | Outpatient (CLI) | payer OTHER, SELFPAY ==
[2024-11-29] VITALS (9 sets, daily range): BP systolic 138–149; BP diastolic 103–104; PULSE 84–118; TEMP 36.6; O2SAT 98–100
[2024-11-29 10:36] LABS: Hematocrit 36.2 % (37.0-47.0); Hemoglobin 11.5 g/dL (12.0-15.0); Immature Granulocyte Percent A 0.9 % (0-0.5); Lymphocytes Absolute Auto 1.81 K/mm3 (0.9-3.2); Mean Corpuscular HGB Conc 31.8 g/dl (32-36); Mean Corpuscular Hemoglobin 26.1 pg (26-34); Mean Corpuscular Volume 82.3 fl (80-100); Nucleated Red Blood Cells Absolute Auto 0.000 K/mm3 (0.0-0.012); Nucleated Red Blood Cells Perc 0.0 % (0.0-0.2); Platelet Count Result 209 k/mm3 (150-375); Red Blood Count 4.40 M/mm3 (4.2-5.4); White Blood Count 11.7 K/mm3 (4.5-10.0)
[2024-11-29 11:00] LABS: Alanine Aminotransferase 27 U/L (6-35); Albumin Level 3.2 g/dL (3.5-5.1); Alkaline Phosphatase 181 U/L (38-126); Anion Gap 5 mmol/L (4-12); Aspartate Amino Transferase 36 U/L (14-36); Bilirubin,Total 0.2 mg/dL (0.2-1.3); Blood Urea Nitrogen 9 mg/dL (7-17); Calcium 8.6 mg/dL (8.4-10.2); Carbon Dioxide 23 mmol/L (22-30); Chloride 108 mmol/L (98-107); Estimated Glomerular Filt Rate > 60; Glucose 79 mg/dL (65-110); Potassium 4.0 mmol/L (3.4-5.0); Sodium 136 mmol/L (137-145); Total Protein 6.3 g/dL (6.3-8.2); Uric Acid 5.9 mg/dL (2.5-7.5)
--- NOTE | 2024-11-29 11:12 | PC.NURSE ---
1100- RN notified Dr. Griffin of patient arrival and patient's complaints. RN notified MD of lab results, VS, as well as assessment. MD gave orders to d/c patient and have her follow up in the office in a few days. 1107- RN at bedside with patient discussing plan of care. Patient agrees with plan of care and knows when to return if needed.
--- OUTSIDE RECORDS SUMMARY | 2024-11-29 11:48 | XMS_ITS | Encounter Summary ---
Author Organization [facility] Address [facility] [place] [address] Care Team Providers Care Artillery Specialist Name Role Phone Too Devries MD Primary Care Provider [phone] None, Provider Primary Care Provider Sofia Bhatt Primary Care Provider [phone] Encounter Details Date Type Department Care Team (Late st Contact Info) Description 06/19/2016 Abstract [facility] CONVERSION [address] [place] [address] , Generic Conversion, Social History Tobacco Use [...] on filedocumented in this encounter Care Teams Artillery Specialist Relationship Specialty Start Date End Date Too Devries MD [address] [place] [address] PCP - General FAMILY PRACTICE 02/26/18 05/04/19 None, ProviderMD PCP - General 11/12/19 10/27/24 Sofia Ramsey FNP [address] [place] [address] [place] [address] PCP - General Nurse Practitioner Family 10/28/24 documented as of this encounter
--- OUTSIDE RECORDS SUMMARY | 2024-11-29 11:48 | XMS_ITS | Clinical Summary ---
Author Organization [facility] Address [facility]ly [facility] [place] [address] Care Team Providers Care Drapery Hemmer Automatic Name Role Phone Sofia Ramsey CHICKEN FANCIER Primary Care Provider [phone] Allergies No known active allergies Medications [id number] -[id number] ( 1 + IRON OR) Active [...] 37.3 weeks bASA ? abruption at delivery ([facility]) 04/09/2023 Estimated Date of Delivery Comme nts Yes 12/07/2024 Resolved Problems Problem Noted Date Diagnosed Date Resolved Date Fracture 06/21/2021 10/28/2024 Overview (10/28/2024): Fractured left foot Chronic pain of left knee 06/16/2018 Encounters Date Type Department Care Team Description 10/28/2024 1:20 PM CDT Office Visit [address] [place] [address] Sofia Ramsey FNP Meet and Greet Provider [...] 12/17/2021 12/18/2011, 11/12/2001, 11/07/1997, Additional history exists COVID-19 Vaccine ( season) 2024 Cervical Cancer Screening 10/28/2025 Po stponed from 1996 (Going to Outside Clinic) HPV Vaccines (1 - 3-dose SCDM series) 11/28/2025 Postponed from 06/29/2023 (Patient Refused) Hepatitis B Vaccines Completed 07/06/1997, 1996, 1996 PHQ-2 (Physician Gary) Completed 10/28/2024 Meningococcal B Vaccine Aged Out [...] age to complete this topic Insurance AETNA [facility] AET[employer] Care Teams Drapery Hemmer Automatic Relationship Specialty Start Date End Date Sofia Ramsey FNP [address] [place] [address] [place] [id number] PCP - General Nurse Practitioner Family 10/28/24
== END 2024-11-29 11:25 | disposition home or self-care (01) ==
LOC: ANHOBOP 10:18 → ANHLDR 10:20
PROVIDERS: PCP Nurse Practitioner Family; Visit Provider Obstetrics & Gynecology
DX: O13.9 Gestational [pregnancy-induced] hypertension without significant proteinuria, unspecified trimester (principal)
CPT/HCPCS: 36415; 80053; 84550; 85025